=== PATIENT | male | born 1950 | race African-American/Black ===

== ENCOUNTER 2018-11-16 10:57 | Inpatient (IN) ==
--- NOTE | 2018-11-16 11:21 | DR.CP ---
HPI Time Seen Time Seen by Provider: 11/16/18 11:15 PCP Primary Care Physician: PATRICIA Complaint Chief Complaint Doctor Comments: A 67 y/o male with chest pain since 3-4 days ago. Location is in the center of his chest and it is not radiating. He describ es it as pressure like and mostly constant. He has no SOB or palpitations. He denies nausea or vomiting. Chief Complaint:: PT. C/O CHEST PAIN X 4 DAYS. PT. COUGHING UP PHLEGM. Reviewed Nurses Notes Review: Yes Source History Provided: Patient Mode of Arrival Mode of Arrival: Ambulatory Timing Onset of Chief Complaint: 11/12/18 Came on: Gradually Pain: Present Now Duration How lon Duration: Days Location Location of Chest Pain: Chest Chest Pain Radiation Location: None Context Cardiac Risk Factors: HTN and Diabetes PE Risk Factors: None History of: None Prehospital Care: None Quality Quality: Pressure like Severity Severity: Mild and Moderate Modifying Factors Worsens: Nothing Impoves: Nothing Associated Signs and Symptoms Associated Signs and Symptoms: None PMH PMH Past Medical History: Yes Past Medical History: Arthritis, Diabetes and Hypertension Past Surgical History: No Surgical History: No History Family History History of Family Medical Conditions: Yes Family Medical History: Diabetes Mellitus Social History Does patient currently use any type of tobacco product: Yes Have you used tobacco products in the last 12 months: Yes Type of Tobacco Use: Cigarettes Does any household member use tobacco: No Alcohol Use: None Do you use any recreational Drugs:: No Lives With: Family Lives Where: Home infectious screening In the last 2 months have you had wt loss of >10#?: NO Have you had fever, night sweats or hemotysis?: No Have you traveled outside the country in the last 6 months?: No Isolation: Standard ROS Review of Systems Constitutional: No Symptoms Reported Eyes: No Symptoms Reported ENTM: No Symptoms Reported Respiratoy: No Symptoms Reported Cardiovascular: Chest Pain Gastrointestinal/Abdominal: No Symptoms Reported Genitourinary: No Symptoms Reported Neurological: No Symptoms Reported Musculoskeletal: No Symptoms Reported Integumentary: No Symptoms Reported Hematologic/Lymphatic: No Symptoms Reported Endocrine: No Symptoms Reported Psychiatric: No Symptoms Reported PE Vitals Vitals: Temperature 98.5 F Pulse Rate [Apical] 100 Pulse Rate 104 Respiratory Rate 22 Blood Pressure [Left Arm] 103/60 Blood Pressure 98/56 O2 Sat by Pulse Oximetry 92 General Limitations: No Limitations General Appearance: Alert and In No Apparent Distress Head Head Exam: Normal Inspection, Atraumatic and Normocephalic Eyes Eye exam: Normal Appearance and EOMI ENT ENT Exam: Mucous Membranes Moist Chest Chest Inspection: Normal Inspection and Symmetric Chest Wall Rise Respiratory Respiratory Exam: Normal Lung Sounds Bilat Cardiovascular Cardiovascular Exam: Regular Rate, Normal Rhythm, +S1 and +S2 Abdominal Exam Abdominal Exam: Normal Inspection, Normal Bowel Sounds and Soft Extremities Extremities Exam: Normal Inspection and Full ROM Back Back Exam: Normal Inspection Neurologic Neurological Exam: Alert and Oriented X3 Psychiatric Psychiatric Exam: Normal Affect and Normal Mood Skin Skin Exam: Warm, Dry and Normal Color COURSE Reevaluation 1st: Improved Education/Counseling Education/Counseling: Patient, Education and Counseling Educated On: Treatment, Diagnosis, Prognosis and Needs for Follow Up ROR Labs Reviewed Laboratory Results Reviewed?: Yes Result Diagrams: 11/16/18 11:33 11/16/18 11:33 Laboratory: WBC 9.3 X10^3/uL (3.6-10.0) 11/16/18 11:33 RBC 4.15 X10^6/uL (4.7-6.0) L 11/16/18 11:33 Hgb 12.6 g/dL (13.5-18.0) L 11/16/18 11:33 Hct 37.9 % (42.0-54.0) L 11/16/18 11:33 MCV 91.2 fL (80.0-100.0) 11/16/18 11:33 MCH 30.3 pg (27.0-34.0) 11/16/18 11:33 MCHC 33.2 g/dL (33.0-35.0) 11/16/18 11:33 RDW 14.0 % (11.6-16.5) 11/16/18 11:33 Plt Count 279 X10^3/uL (150.0-450.0) 11/16/18 11:33 MPV 7.6 fL (7.4-11.0) 11/16/18 11:33 Neut % (Auto) 70.1 % (42.0-75.0) 11/16/18 11:33 Lymph % (Auto) 19.2 % (21.0-51.0) L 11/16/18 11:33 [place] % (Auto) 9.7 % (0.0-13.0) 11/16/18 11:33 Eos % (Auto) 0.0 % (0.9-2.9) L 11/16/18 11:33 Baso % (Auto) 1.0 % (0.2-1.0) 11/16/18 11:33 Neut # (Auto) 6.5 x10^3/uL (2.2-4.8) H 11/16/18 11:33 Lymph # (Auto) 1.8 X10^3/uL (1.3-2.9) 11/16/18 11:33 [place] # (Auto) 0.9 x10^3/uL (0.3-0.8) H 11/16/18 11:33 Eos # (Auto) 0.0 x10^3/uL (0.0-0.2) 11/16/18 11:33 Baso # (Auto) 0.1 X10^3/uL (0.0-0.1) 11/16/18 11:33 Absolute Nucleated RBC 0.1 /100WBC 11/16/18 11:33 INR Target Range - 11/16/18 11:33 INR 1.09 (0.8-1.3) 11/16/18 11:33 APTT 39.3 SECONDS (22.9-36.5) H 11/16/18 11:33 PTT Comment - 11/16/18 11:33 Sodium 134 mmol/L (136-145) L 11/16/18 11:33 Corrected Sodium TNP 11/16/18 11:33 Potassium 4.0 mmol/L (3.5-5.1) 11/16/18 11:33 Chloride 99 mmol/L (98-107) 11/16/18 11:33 Carbon Dioxide 24.7 mmol/L (21-32) 11/16/18 11:33 BUN 20 mg/dL (7-18) H 11/16/18 11:33 Creatinine 1.44 mg/dL (0.70-1.30) H 11/16/18 11:33 Est GFR (MDRD) Af Amer > 60 (>60) 11/16/18 11:33 Est GFR (MDRD) Non-Af 52 (>60) L 11/16/18 11:33 Glucose 66 mg/dL (65-99) 11/16/18 11:33 Calcium 8.2 mg/dL (8.5-10.1) L 11/16/18 11:33 Corrected Calcium 9.2 mg/dL (8.5-10.1) 11/16/18 11:33 Magnesium 1.8 mg/dL (1.7-2.9) 11/16/18 11:33 Total Bilirubin 0.20 mg/dL (0.2-1.0) 11/16/18 11:33 AST 34 Units/L (15-37) 11/16/18 11:33 ALT 20 Units/L (12-78) 11/16/18 11:33 Alkaline Phosphatase 73 Units/L (46-116) 11/16/18 11:33 Creatine Kinase 560 Units/L (39-308) H 11/16/18 11:33 CK-MB (CK-2) 1.0 ng/mL (0-4.0) 11/16/18 11:33 CK/CKMB % Calc 0.2 % (<4) 11/16/18 11:33 Troponin I < 0.02 ng/mL (0-1.5) 11/16/18 11:33 B-Natriuretic Peptide 35.0 pg/mL (0-79) 11/16/18 11:33 Total Protein 7.2 g/dL (6.4-8.2) 11/16/18 11:33 Albumin 2.7 g/dL (3.4-5.0) L 11/16/18 11:33 Globulin 4.5 g/dL (2.5-4.5) 11/16/18 11:33 Albumin/Globulin Ratio 0.6 Ratio (1.1-2.1) L 11/16/18 11:33 XRAY XRAY Interpreted by: Radiologist XRAY Findings: CXR: findings suggestive of COPD. EKG Rate: 112 [place]: Normal Rhythm: ST and PVCs Block: None Hypertrophy: LVH and RVH Diagnosis Discharge Problem: Benign essential HTN Chest pain Qualifiers: Chest pain type: precordial pain Qualified Code(s): R07.2 - Precordial pain Diabetes mellitus Qualifiers: Diabetes mellitus type: type 2 Diabetes mellitus intermediate manager insulin use: without intermediate manager use Diabetes mellitus complication status: without complication Qualif ied Code(s): E11.9 - Type 2 diabetes mellitus without complications
[2018-11-16 11:44] LABS: BASOPHILS # (AUTO) 0.1 X10^3/uL (0.0-0.1); HEMATOCRIT 37.9 % (42.0-54.0); HEMOGLOBIN 12.6 g/dL (13.5-18.0); LYMPHOCYTES # (AUTO) 1.8 X10^3/uL (1.3-2.9); LYMPHOCYTES % (AUTO) 19.2 % (21.0-51.0); MEAN CORPUSCULAR HEMOGLOBIN 30.3 pg (27.0-34.0); MEAN CORPUSCULAR HGB CONC 33.2 g/dL (33.0-35.0); MEAN CORPUSCULAR VOLUME 91.2 fL (80.0-100.0); MEAN PLATELET VOLUME 7.6 fL (7.4-11.0); MONOCYTES # (AUTO) 0.9 x10^3/uL (0.3-0.8); MONOCYTES % (AUTO) 9.7 % (0.0-13.0); NEUTROPHILS # (AUTO) 6.5 x10^3/uL (2.2-4.8); NEUTROPHILS % (AUTO) 70.1 % (42.0-75.0); PLATELET COUNT 279 X10^3/uL (150.0-450.0); RED BLOOD COUNT 4.15 X10^6/uL (4.7-6.0); WHITE BLOOD COUNT 9.3 X10^3/uL (3.6-10.0)
--- NOTE | 2018-11-16 12:08 | RAD ---
HISTORY: 67-year-old male with chest pain. Study: Frontal view of the chest. Comparison: Acute abdominal series radiograph 08/05/2015. Findings: The trachea is midline. The cardiac silhouette is stable with prominent interstitium and perihilar lung markings. The lungs are clear without focal consolidation, effusion or pneumothorax. Soft tissues are unremarkable. Osseous structures are unremarkable. IMPRESSION: 1. No acute cardiopulmonary disease with findings suggesting COPD. Reported By:
[2018-11-16 12:13] LABS: BLOOD UREA NITROGEN 20 mg/dL (7-18); CALCIUM 8.2 mg/dL (8.5-10.1); CARBON DIOXIDE 24.7 mmol/L (21-32); CHLORIDE 99 mmol/L (98-107); CREATININE 1.44 mg/dL (0.70-1.30); SODIUM 134 mmol/L (136-145); TROPONIN I < 0.02 ng/mL (0-1.5); eGFR NON BLACK RACES 52 (>60)
[2018-11-16 12:14] LABS: ALANINE AMINOTRANSFERASE 20 Units/L (12-78); ALBUMIN 2.7 g/dL (3.4-5.0); ALKALINE PHOSPHATASE 73 Units/L (46-116); ASPARTATE AMINO TRANSFERASE 34 Units/L (15-37); CKMB % 0.2 % (<4); COR CA(FOR HYPOALB) 9.2 mg/dL (8.5-10.1); CREATINE KINASE 560 Units/L (39-308); MAGNESIUM 1.8 mg/dL (1.7-2.9); TOTAL PROTEIN 7.2 g/dL (6.4-8.2)
[2018-11-16] MEDS ORDERED: DUONEB 0.5 MG/3 MG ONE (12:23)
[2018-11-16] MEDS ORDERED: DUONEB 0.5 MG/3 MG NEB ONE (12:42)
[2018-11-16] MEDS ORDERED: NITROSTAT SL PRN (15:55)
[2018-11-16 19:33] LABS: CKMB % 0.2 % (<4); CREATINE KINASE 621 Units/L (39-308); CREATINE KINASE MB 1.3 ng/mL (0-4.0); TROPONIN I < 0.02 ng/mL (0-1.5)
[2018-11-16] MEDS ORDERED: GLUCOPHAGE ONE (20:07)
[2018-11-16] MEDS: ZESTRIL TAB 10 MG PO SCH (21:01)
[2018-11-16] MEDS: FLEXERIL TAB 10 MG PO SCH (21:01)
[2018-11-16] MEDS: GLUCOTROL PO SCH (21:01)
[2018-11-16] MEDS: GLUCOPHAGE PO SCH (21:01)
[2018-11-16] MEDS: DUONEB 0.5 MG/3 MG NEB SCH (21:19)
[2018-11-17 01:31] LABS: CKMB % 0.3 % (<4); CREATINE KINASE 700 Units/L (39-308); CREATINE KINASE MB 1.8 ng/mL (0-4.0); TROPONIN I < 0.02 ng/mL (0-1.5)
[2018-11-17 05:22] LABS: BASOPHILS % (AUTO) 0.3 % (0.2-1.0); EOSINOPHILS % (AUTO) 0.1 % (0.9-2.9); HEMATOCRIT 35.5 % (42.0-54.0); HEMOGLOBIN 11.8 g/dL (13.5-18.0); LYMPHOCYTES % (AUTO) 23.2 % (21.0-51.0); MEAN CORPUSCULAR HEMOGLOBIN 30.3 pg (27.0-34.0); MEAN CORPUSCULAR HGB CONC 33.2 g/dL (33.0-35.0); MEAN CORPUSCULAR VOLUME 91.1 fL (80.0-100.0); MEAN PLATELET VOLUME 7.7 fL (7.4-11.0); MONOCYTES % (AUTO) 11.5 % (0.0-13.0); NEUTROPHILS # (AUTO) 5.7 x10^3/uL (2.2-4.8); NEUTROPHILS % (AUTO) 64.9 % (42.0-75.0); PLATELET COUNT 287 X10^3/uL (150.0-450.0); RED BLOOD COUNT 3.89 X10^6/uL (4.7-6.0); RED CELL DISTRIBUTION WIDTH 13.9 % (11.6-16.5); WHITE BLOOD COUNT 8.8 X10^3/uL (3.6-10.0)
[2018-11-17 05:32] LABS: ALANINE AMINOTRANSFERASE 22 Units/L (12-78); ALBUMIN 2.4 g/dL (3.4-5.0); ALKALINE PHOSPHATASE 70 Units/L (46-116); ASPARTATE AMINO TRANSFERASE 37 Units/L (15-37); BLOOD UREA NITROGEN 18 mg/dL (7-18); CALCIUM 8.3 mg/dL (8.5-10.1); CARBON DIOXIDE 26.7 mmol/L (21-32); CHLORIDE 102 mmol/L (98-107); COR CA(FOR HYPOALB) 9.6 mg/dL (8.5-10.1); CREATININE 1.27 mg/dL (0.70-1.30); SODIUM 137 mmol/L (136-145); TOTAL PROTEIN 6.7 g/dL (6.4-8.2); eGFR NON BLACK RACES 60 (>60)
[2018-11-17] MEDS: FLEXERIL TAB 10 MG PO SCH ×3 (05:42→22:12)
[2018-11-17] MEDS: DUONEB 0.5 MG/3 MG NEB SCH ×4 (08:40→20:35)
[2018-11-17] MEDS ORDERED: PHARMACY CONSULT - DOSE _____ XX SCH (09:00)
[2018-11-17 09:01] VITALS: BMI 38.7
[2018-11-17] MEDS: ZESTRIL TAB 10 MG PO SCH ×2 (09:51→20:55)
[2018-11-17] MEDS: GLUCOTROL PO SCH (09:51)
[2018-11-17] MEDS: GLUCOPHAGE PO SCH ×2 (09:53→20:54)
--- NOTE | 2018-11-17 09:53 | RAD ---
History: Chest pain and shortness breath Study: PA and lateral chest Comparison: Yesterday Findings: The lungs are clear and the heart and mediastinum are unremarkable. There is no edema or effusion or congestion. There is hyperinflation as before. There are mild degenerative changes in the spine. Impression: Probable COPD, no evidence for acute disease Reported By:
[2018-11-17] MEDS ORDERED: NS 250 ML IV 250 ML ONE (10:17)
[2018-11-17] MEDS: LEVAQUIN PREMIX IV 500 MG 500 MG/100 ML BAG IV SCH (10:28)
[2018-11-17] MEDS: SOLU-Medrol 40 MG VIAL IVP SCH ×2 (10:29→20:50)
--- NOTE | 2018-11-17 12:25 | DR.H&P ---
H&P - History & Physical for Day of: H&P Date: 11/16/18 - Chief Complaint Chief Complaint: SOB, chest discomfort - History of Present Illness History of Present Illness: The patient is a 67yo BM who presented to ED with complaint of SOB. Patient gives a history of progressive over last 3 days with pain when taking deep breaths. Denies pain with movement or chest pressure. States that he was having increasing trouble walking across room. Denies hx of asthma or COPD. States he smoked tobacco 15+yrs ago. Denies fever. Has had productive cough. Denies any nasal congestion. Denies any other complaints. - Past Medical History Past Medical History: Hypertension, Diabetes, Arthritis - Past Surgical History Surgical History: TURP - Family History Family Medical History: Diabetes Mellitus - Social History Does patient currently use any type of tobacco product: No Have you used tobacco products in the last 12 months: No Type of Tobacco Use: None How many years tobacco product used: 15 Does any household member use tobacco: No Alcohol Use: None Drug Use: None - Medications Home Medications: No Known Drug Allergies Allergy (Verified 11/16/18 11:06) CONTINUE taking the following medications carvedilol [Coreg] 3.125 mg PO DAILY 11/16/18 [History] cyclobenzaprine 10 mg PO TID 11/16/18 [History] lisinopril [Zestril] 10 mg PO BID 11/16/18 [History] - Review of Systems Constitutional: Malaise Eyes: No Symptoms Reported ENT: No Symptoms Reported Respiratory: Cough, Shortness of Breath, SOB with Excertion, Pleuritic Pain, Sputum, Wheezing Cardiovascular: No Symptoms Reported Gastrointestinal: No Symptoms Reported Genitourinary: No Symptoms Reported Musculoskeletal: No Symptoms Reported Skin: No Symptoms Reported Neurological: No Symptoms Reported - Physical Exam Vital Signs: Temperature 98.2 F Pulse Rate [Apical] 95 Pulse Rate 106 Respiratory Rate 20 Blood Pressure [Right Arm] 98/57 Blood Pressure [Left Arm] 117/64 Blood Pressure 98/56 O2 Sat by Pulse Oximetry 95 Oriented: Normal Eyes: Normal Ear: Normal Nose: Normal Throat: Normal Respiratory: RUL Exp. Wheeze, MIKHAIL Exp. Wheeze Cardiovascular: Normal : Normal Auscultation: Bowel Sounds: Normal Palpation: Normal Tenderness: Normal Skin: Normal Musculoskeletal: Normal Psychiatric: Normal Mood Description: Calm Affect: Normal Speech Pattern: Clear - Assessment/Plan (1) COPD exacerbation Status: Acute Plan: Albuterol Nebs, IV antibiotics, Steriods (2) Hypoxia Status: Acute (3) Benign essential HTN Status: Acute Plan: Monitor BP, Home meds. (4) Diabetes mellitus Qualifiers: Diabetes mellitus type: type 2 Diabetes mellitus supervisor long goods insulin use: without supervisor long goods use Diabetes mellitus complication status: without complication Qualified Code(s): E11.9 - Type 2 diabetes mellitus without complications Status: Acute Plan: Monitor BS - Allergies Allergies/Adverse Reactions: Allergies Allergy/AdvReac Type Severity Reaction Status Date / Time No Known Drug Allergies Allergy Verified 11/16/18 11:06
--- NOTE | 2018-11-17 12:30 | PCM.PROG ---
Progress Note - Progress Note for Day of Date of Exam: 11/17/18 - Subjective Subjective: The patient is a 67yo BM who was admitted due to COPD exacerbation. This is a new diagnosis for patient. Patient is sitting up in chair. Continues to have nonproductive cough and SOB. Wearing O2 @2L/m. Elevated D Dimer. Denies leg pain. Does admit to SOB with walking across room with sudden onset. Denies any other complaints. - Past Medical Family Social History Past Med/Fam/Surg Hx: No changes since H&P Allergies: Allergies No Known Drug Allergies Allergy (Verified 11/16/18 11:06) - Review of Systems ROS: No change since H&P - Vital Signs and I&O's Vital Signs: Temperature 98.2 F Pulse Rate [Apical] 95 Pulse Rate 106 Respiratory Rate 20 Blood Pressure [Right Arm] 98/57 Blood Pressure [Left Arm] 117/64 Blood Pressure 98/56 O2 Sat by Pulse Oximetry 95 Intake and Output: Intake & Output 11/14/18 11/15/18 11/16/18 11/17/18 23:59 23:59 23:59 23:59 Intake Total 360 / 360 360 / 360 Balance 360 / 360 360 / 360 - Physical Exam Oriented: Normal Eyes: Normal Ear: Normal Nose: Normal Throat: Normal Respiratory: Wheezes, Rhonchi Cardiovascular: Normal : Normal Auscultation: Bowel Sounds: Normal Palpation: Normal Tenderness: Normal Skin: Normal Musculoskeletal: Normal Psychiatric: Normal Mood Description: Calm Affect: Normal Speech Pattern: Clear - Laboratory and Diagnostics Result Diagrams: 11/17/18 04:06 11/17/18 05:57 Labs: 11/17/18 11:10 Sputum - Expectorated Sputum - Final Laboratory WBC 8.8 X10^3/uL (3.6-10.0) 11/17/18 04:06 RBC 3.89 X10^6/uL (4.7-6.0) L 11/17/18 04:06 Hgb 11.8 g/dL (13.5-18.0) L 11/17/18 04:06 Hct 35.5 % (42.0-54.0) L 11/17/18 04:06 MCV 91.1 fL (80.0-100.0) 11/17/18 04:06 MCH 30.3 pg (27.0-34.0) 11/17/18 04:06 MCHC 33.2 g/dL (33.0-35.0) 11/17/18 04:06 RDW 13.9 % (11.6-16.5) 11/17/18 04:06 Plt Count 287 X10^3/uL (150.0-450.0) 11/17/18 04:06 MPV 7.7 fL (7.4-11.0) 11/17/18 04:06 Neut % (Auto) 64.9 % (42.0-75.0) 11/17/18 04:06 Lymph % (Auto) 23.2 % (21.0-51.0) 11/17/18 04:06 [place] % (Auto) 11.5 % (0.0-13.0) 11/17/18 04:06 Eos % (Auto) 0.1 % (0.9-2.9) L 11/17/18 04:06 Baso % (Auto) 0.3 % (0.2-1.0) 11/17/18 04:06 Neut # (Auto) 5.7 x10^3/uL (2.2-4.8) H 11/17/18 04:06 Lymph # (Auto) 2.0 X10^3/uL (1.3-2.9) 11/17/18 04:06 [place] # (Auto) 1.0 x10^3/uL (0.3-0.8) H 11/17/18 04:06 Eos # (Auto) 0.0 x10^3/uL (0.0-0.2) 11/17/18 04:06 Baso # (Auto) 0.0 X10^3/uL (0.0-0.1) 11/17/18 04:06 Absolute Nucleated RBC 0.1 /100WBC 11/17/18 04:06 INR Target Range - 11/16/18 11:33 INR 1.09 (0.8-1.3) 11/16/18 11:33 APTT 39.3 SECONDS (22.9-36.5) H 11/16/18 11:33 PTT Comment - 11/16/18 11:33 D-Dimer 603 ng/mL (0-400) H* 11/16/18 11:33 Sodium 137 mmol/L (136-145) 11/17/18 04:06 Corrected Sodium TNP 11/17/18 04:06 Potassium 3.9 mmol/L (3.5-5.1) 11/17/18 04:06 Chloride 102 mmol/L (98-107) 11/17/18 04:06 Carbon Dioxide 26.7 mmol/L (21-32) 11/17/18 04:06 BUN 18 mg/dL (7-18) 11/17/18 04:06 Creatinine 1.27 mg/dL (0.70-1.30) 11/17/18 04:06 Est GFR (MDRD) Af Amer > 60 (>60) 11/17/18 04:06 Est GFR (MDRD) Non-Af 60 (>60) 11/17/18 04:06 Glucose 52 mg/dL (65-99) L 11/17/18 05:57 POC Glucose (mg/dL) 168 mg/dL (65-99) H 11/17/18 11:42 Calcium 8.3 mg/dL (8.5-10.1) L 11/17/18 04:06 Corrected Calcium 9.6 mg/dL (8.5-10.1) 11/17/18 04:06 Magnesium 1.8 mg/dL (1.7-2.9) 11/16/18 11:33 Total Bilirubin 0.10 mg/dL (0.2-1.0) L 11/17/18 04:06 AST 37 Units/L (15-37) 11/17/18 04:06 ALT 22 Units/L (12-78) 11/17/18 04:06 Alkaline Phosphatase 70 Units/L (46-116) 11/17/18 04:06 Creatine Kinase 700 Units/L (39-308) H 11/17/18 00:59 CK-MB (CK-2) 1.8 ng/mL (0-4.0) 11/17/18 00:59 CK/CKMB % Calc 0.3 % (<4) 11/17/18 00:59 Troponin I < 0.02 ng/mL (0-1.5) 11/17/18 00:59 B-Natriuretic Peptide 35.0 pg/mL (0-79) 11/16/18 11:33 Total Protein 6.7 g/dL (6.4-8.2) 11/17/18 04:06 Albumin 2.4 g/dL (3.4-5.0) L 11/17/18 04:06 Globulin 4.3 g/dL (2.5-4.5) 11/17/18 04:06 Albumin/Globulin Ratio 0.6 Ratio (1.1-2.1) L 11/17/18 04:06 - Plan (1) COPD exacerbation Status: Acute Plan: Albuterol Nebs, IV antibiotics, Steriods (2) Hypoxia Status: Acute Plan: O2 2l/m NC (3) Benign essential HTN Status: Acute Plan: Monitor BP, Home meds. (4) Diabetes mellitus Status: Acute Qualifiers: Diabetes mellitus type: type 2 Diabetes mellitus mcfp insulin use: without mcfp use Diabetes mellitus complication status: without complication Qualified Code(s): E11.9 - Type 2 diabetes mellitus without complications Plan: Monitor BS
[2018-11-17] MEDS ORDERED: NS 100 ML IV 100 ML ONE (15:07)
--- NOTE | 2018-11-17 15:59 | CT ---
HISTORY: Chest pain, shortness of breath, hypoxia, elevated D-dimer Study: CTA chest Comparison: None Technique: Multiple axial images of the chest were obtained after the administration of IV contrast. 3D reconstructions were performed utilizing radial maximum intensity projection imaging. Dose reduction techniques including Automated Exposure Control (AEC) and adjustment of mA and kV were utilized. Findings: Contrast opacification of the pulmonary arteries is adequate to the level of the segmental branches. No evidence of acute pulmonary emboli. Normal appearance of the heart and pericardium. The aorta appears normal in course and caliber. There are mild bilateral ground-glass infiltrates that may reflect infectious or inflammatory pneumonitis. Effusion or pneumothorax identified. Airways appear patent. There are mildly enlarged mediastinal lymph nodes present for example the largest right paratracheal node axial image 34 measuring 1.7 x 1.3 cm and largest subcarinal node axial image 45 measuring up 2.5 cm that may be reactive. There is a small hiatal hernia. The soft tissues and osseous structures appear intact. The visualized portions of the upper abdomen are grossly unremarkable. IMPRESSION: 1. Bilateral ground-glass infiltrates that suggesting infectious or inflammatory pneumonitis, correlate clinically. 2. Mildly enlarged mediastinal lymph nodes as described that may be reactive in nature. 3. No acute pulmonary embolism. Reported By:
[2018-11-17] MEDS: HumuLIN R SUBCUT PRN ×2 (17:19→21:15)
[2018-11-17] MEDS ORDERED: GLUCOPHAGE ONE (20:32)
[2018-11-17] MEDS: SNACK - Diabetic Appropriate PO SCH (20:55)
[2018-11-18] MEDS ORDERED: NORCO 5/325 MG TAB PO PRN (00:38)
[2018-11-18] MEDS: HumuLIN R SUBCUT PRN ×6 (00:58→21:48)
[2018-11-18] MEDS ORDERED: NORCO 5/325 MG TAB ONE (01:55)
[2018-11-18 05:22] LABS: BASOPHILS % (AUTO) 0.3 % (0.2-1.0); HEMATOCRIT 36.3 % (42.0-54.0); LYMPHOCYTES # (AUTO) 1.4 X10^3/uL (1.3-2.9); LYMPHOCYTES % (AUTO) 16.7 % (21.0-51.0); MEAN CORPUSCULAR HEMOGLOBIN 30.3 pg (27.0-34.0); MEAN CORPUSCULAR HGB CONC 33.1 g/dL (33.0-35.0); MEAN CORPUSCULAR VOLUME 91.3 fL (80.0-100.0); MEAN PLATELET VOLUME 7.4 fL (7.4-11.0); MONOCYTES # (AUTO) 0.5 x10^3/uL (0.3-0.8); MONOCYTES % (AUTO) 6.3 % (0.0-13.0); NEUTROPHILS # (AUTO) 6.3 x10^3/uL (2.2-4.8); NEUTROPHILS % (AUTO) 76.7 % (42.0-75.0); PLATELET COUNT 331 X10^3/uL (150.0-450.0); RED BLOOD COUNT 3.98 X10^6/uL (4.7-6.0); RED CELL DISTRIBUTION WIDTH 14.5 % (11.6-16.5); WHITE BLOOD COUNT 8.2 X10^3/uL (3.6-10.0)
[2018-11-18 05:39] LABS: ALANINE AMINOTRANSFERASE 28 Units/L (12-78); ALBUMIN 2.3 g/dL (3.4-5.0); ALKALINE PHOSPHATASE 79 Units/L (46-116); ASPARTATE AMINO TRANSFERASE 32 Units/L (15-37); BLOOD UREA NITROGEN 25 mg/dL (7-18); CALCIUM 8.5 mg/dL (8.5-10.1); CARBON DIOXIDE 26.4 mmol/L (21-32); CHLORIDE 104 mmol/L (98-107); COR CA(FOR HYPOALB) 9.9 mg/dL (8.5-10.1); COR NA(FOR HYPERGLY) 143 mmol/L (136-145); CREATININE 1.36 mg/dL (0.70-1.30); SODIUM 139 mmol/L (136-145); eGFR NON BLACK RACES 55 (>60)
[2018-11-18] MEDS: FLEXERIL TAB 10 MG PO SCH ×3 (05:58→21:46)
[2018-11-18] MEDS ORDERED: GLUCOPHAGE ONE ×2 (08:40→21:24)
[2018-11-18] MEDS: DUONEB 0.5 MG/3 MG NEB SCH ×4 (08:44→21:29)
[2018-11-18] MEDS: GLUCOPHAGE PO SCH ×2 (08:51→21:46)
[2018-11-18] MEDS: ZESTRIL TAB 10 MG PO SCH ×2 (08:51→21:47)
[2018-11-18] MEDS: LEVAQUIN PREMIX IV 500 MG 500 MG/100 ML BAG IV SCH (08:52)
[2018-11-18] MEDS: SOLU-Medrol 40 MG VIAL IVP SCH ×2 (08:52→21:46)
[2018-11-18] MEDS: LOVENOX INJ 40 MG SYR SC SCH (08:52)
[2018-11-18 19:51] LABS: ABG BASE EXCESS -0.6 mmol/L (-2.0-2.0); ABG HCO3 23.1 mmol/L (22-26)
[2018-11-18 19:52] LABS: ABG ALLEN TEST POS; FRACTIONATED INSPIRED OXYGEN 21
[2018-11-18] MEDS: SNACK - Diabetic Appropriate PO SCH (21:48)
[2018-11-19] MEDS: FLEXERIL TAB 10 MG PO SCH (05:25)
[2018-11-19] MEDS: HumuLIN R SUBCUT PRN (05:29)
--- NOTE | 2018-11-19 06:03 | RAD ---
Examination: AP chest, two views History: Chest pain SOB Comparison 11/17/2018 Findings: Continued normal heart size with clear lungs and pleural spaces. Impression: No interval change or acute chest abnormality demonstrated. Reported By:
[2018-11-19 06:36] LABS: BASOPHILS # (AUTO) 0.1 X10^3/uL (0.0-0.1); BASOPHILS % (AUTO) 0.5 % (0.2-1.0); HEMATOCRIT 35.7 % (42.0-54.0); HEMOGLOBIN 11.8 g/dL (13.5-18.0); LYMPHOCYTES # (AUTO) 1.5 X10^3/uL (1.3-2.9); LYMPHOCYTES % (AUTO) 12.8 % (21.0-51.0); MEAN CORPUSCULAR HEMOGLOBIN 29.8 pg (27.0-34.0); MEAN CORPUSCULAR HGB CONC 33.1 g/dL (33.0-35.0); MEAN CORPUSCULAR VOLUME 90.1 fL (80.0-100.0); MEAN PLATELET VOLUME 7.1 fL (7.4-11.0); MONOCYTES # (AUTO) 0.8 x10^3/uL (0.3-0.8); MONOCYTES % (AUTO) 7.3 % (0.0-13.0); NEUTROPHILS # (AUTO) 9.1 x10^3/uL (2.2-4.8); NEUTROPHILS % (AUTO) 79.4 % (42.0-75.0); PLATELET COUNT 421 X10^3/uL (150.0-450.0); RED BLOOD COUNT 3.96 X10^6/uL (4.7-6.0); RED CELL DISTRIBUTION WIDTH 14.2 % (11.6-16.5); WHITE BLOOD COUNT 11.4 X10^3/uL (3.6-10.0)
[2018-11-19 06:52] LABS: ALANINE AMINOTRANSFERASE 29 Units/L (12-78); ALBUMIN 2.5 g/dL (3.4-5.0); ALKALINE PHOSPHATASE 79 Units/L (46-116); ASPARTATE AMINO TRANSFERASE 20 Units/L (15-37); BLOOD UREA NITROGEN 28 mg/dL (7-18); CALCIUM 8.6 mg/dL (8.5-10.1); CARBON DIOXIDE 25.2 mmol/L (21-32); CHLORIDE 103 mmol/L (98-107); COR CA(FOR HYPOALB) 9.8 mg/dL (8.5-10.1); COR NA(FOR HYPERGLY) 142 mmol/L (136-145); CREATININE 1.41 mg/dL (0.70-1.30); SODIUM 138 mmol/L (136-145); TOTAL PROTEIN 7.1 g/dL (6.4-8.2); eGFR NON BLACK RACES 53 (>60)
[2018-11-19] MEDS: DUONEB 0.5 MG/3 MG NEB SCH (09:01)
[2018-11-19] MEDS ORDERED: GLUCOPHAGE ONE (09:42)
[2018-11-19] MEDS: LEVAQUIN PREMIX IV 500 MG 500 MG/100 ML BAG IV SCH (09:45)
[2018-11-19] MEDS: ZESTRIL TAB 10 MG PO SCH (09:45)
[2018-11-19] MEDS: GLUCOPHAGE PO SCH (09:45)
[2018-11-19] MEDS: SOLU-Medrol 40 MG VIAL IVP SCH (09:46)
[2018-11-19] MEDS: LOVENOX INJ 40 MG SYR SC SCH (09:46)
[2018-11-19 10:37] VITALS: BP 140/88
== END 2018-11-19 10:55 | disposition home or self-care (01) | DRG 192 ==
LOC: MED/SURG 11:01 → ER 11:01 → OBSVTOIN 15:45 → MED/SURG 16:01
PROVIDERS: ADMIT Internal Medicine; ATTEND Internal Medicine
DX: E11.9 Type 2 diabetes mellitus without complications; R09.02 Hypoxemia; I95.89 Other hypotension; R07.2 Precordial pain; R06.02 Shortness of breath; R79.1 Abnormal coagulation profile; J44.1 Chronic obstructive pulmonary disease with (acute) exacerbation
CPT/HCPCS: 36415; 36600; 71010; 71020; 71045; 71046; 71275; 80053; 82550; 82553; 82803; 82947; 83735; 83880; 84484; 85025; 85378; 85610; 85730; 87070; 87205; 93005; 94640; 94760; 96365; 96374; 97116; 97162; 97166; 99284; A4222; J1650; J1815; J1956; J2920; J7050; J7620

== ENCOUNTER 2021-02-22 13:52 | Inpatient (IN) ==
[2021-02-22 14:11] VITALS: BMI 34.0
[2021-02-22 14:35] LABS: ABG BASE EXCESS -5.6 mmol/L (-2.0-2.0); ABG HCO3 20.1 mmol/L (22-26)
[2021-02-22 14:36] LABS: ABG ALLEN TEST POS
[2021-02-22 14:50] LABS: BASOPHILS # (AUTO) 0.1 X10^3/uL (0.0-0.1); EOSINOPHILS % (AUTO) 0.1 % (0.9-2.9); HEMATOCRIT 34.2 % (42.0-54.0); HEMOGLOBIN 11.5 g/dL (13.5-18.0); LYMPHOCYTES # (AUTO) 0.6 X10^3/uL (1.3-2.9); LYMPHOCYTES % (AUTO) 9.9 % (21.0-51.0); MEAN CORPUSCULAR HEMOGLOBIN 30.4 pg (27.0-34.0); MEAN CORPUSCULAR HGB CONC 33.5 g/dL (33.0-35.0); MEAN CORPUSCULAR VOLUME 90.8 fL (80.0-100.0); MEAN PLATELET VOLUME 7.5 fL (7.4-11.0); MONOCYTES # (AUTO) 0.5 x10^3/uL (0.3-0.8); MONOCYTES % (AUTO) 8.2 % (0.0-13.0); NEUTROPHILS # (AUTO) 5.2 x10^3/uL (2.2-4.8); NEUTROPHILS % (AUTO) 80.8 % (42.0-75.0); PLATELET COUNT 421 X10^3/uL (150.0-450.0); RED BLOOD COUNT 3.77 X10^6/uL (4.7-6.0); RED CELL DISTRIBUTION WIDTH 15.6 % (11.6-16.5); WHITE BLOOD COUNT 6.5 X10^3/uL (3.6-10.0)
[2021-02-22 15:10] LABS: ALANINE AMINOTRANSFERASE 24 Units/L (12-78); ALBUMIN 1.9 g/dL (3.4-5.0); ALKALINE PHOSPHATASE 70 Units/L (46-116); ASPARTATE AMINO TRANSFERASE 60 Units/L (15-37); BLOOD UREA NITROGEN 47 mg/dL (7-18); CALCIUM 7.6 mg/dL (8.5-10.1); CARBON DIOXIDE 22.9 mmol/L (21-32); CHLORIDE 103 mmol/L (98-107); CKMB % 0.2 % (<4); COR CA(FOR HYPOALB) 9.3 mg/dL (8.5-10.1); COR NA(FOR HYPERGLY) 139 mmol/L (136-145); CREATINE KINASE 711 Units/L (39-308); CREATINE KINASE MB 1.2 ng/mL (0-4.0); CREATININE 1.66 mg/dL (0.70-1.30); SODIUM 138 mmol/L (136-145); TOTAL PROTEIN 6.4 g/dL (6.4-8.2); TROPONIN I < 0.02 ng/mL (0-1.5); eGFR NON BLACK RACES 44 (>60)
--- NOTE | 2021-02-22 15:37 | DR.AMS ---
HPI Time Seen Time Seen by Provider: 02/22/21 14:22 PCP Primary Care Physician: Dr Go HPI Comment HPI Comment: Pt brought to ER by EMS. according to them pts family members pos for covid.pt was sitting outside he fell and hurt his side .Its difficult to know if he lost consciousness or not .On arrival pts oxygen sat in the higher 60s on room air .Improved to over 80s and then 90s with non breather Complaint Cheif Complaint Doctors Comments: fall Chief Complaint:: EMS reports pt has altered loc per relatives. Pt answers name, , and current location. O2 sat 83% on O2 at 4 lpm. Family states this started a few days ago. Pt c/o left side pain s/p fall 3 days ago. COVID-19 Coronavirus risk:travel/contact w/high risk person: Yes Has patient experienced Coronavirus symptoms: No Coronavirus symptoms experienced: Shortness of Breath Reviewed Nurses Notes Reviewed: Yes Source History Provided: EMS Mode of Arrival Mode of Arrival: EMS Timing Onset of Chief Complaint: 02/19/21 Came On: Gradually Symptoms: Unchanged Duration Duration: Since Onset Duration: Hours Quality Quality: Decreased Alertness and Confusion Severity Severity: Moderate Context Recent: Cough PMH PMH Past Medical History: Yes Past Medical History: Arthritis, Diabetes, Dyslipidemia and Hypertension Past Surgical History: Yes Surgical History: TURP Family History History of Family Medical Conditions: Yes Family Medical History: Diabetes Mellitus Social History Does patient currently use any type of tobacco product: Yes Have you used tobacco products in the last 12 months: Yes Type of Tobacco Use: Cigarettes Does any household member use tobacco: No Alcohol Use: None Do you use any recreational Drugs:: No Lives With: Alone Lives Where: Home Travel Risk Coronavirus risk:travel/contact w/high risk person: Yes Has patient experienced Coronavirus symptoms: No Coronavirus symptoms experienced: Shortness of Breath Infectious screening In the last 2 months have you had wt loss of >10#?: NO Have you had fever, night sweats or hemotysis?: No Have you traveled outside the country in the last 6 months?: No Isolation: Droplet ROS Review of Systems Constitutional: See HPI and Weakness Eyes: See HPI ENTM: No Symptoms Reported Respiratoy: Productive Cough and Short of Breath Gastrointestinal/Abdominal: No Symptoms Reported Genitourinary: No Symptoms Reported Neurological: See HPI Musculoskeletal: Other (rib pain) Hematologic/Lymphatic: No Symptoms Reported PE Vitals Vital Signs: Temp Pulse Resp BP BP BP Pulse Ox 02/22/21 18:15 90 24 92 L 02/22/21 18:00 90 22 107/77 88 L 02/22/21 17:45 88 25 H 90 L 02/22/21 17:30 90 20 100/64 90 L 02/22/21 17:24 91 H 21 91 L 02/22/21 17:00 19 107/67 90 L 02/22/21 16:00 86 22 85/58 97 02/22/21 15:00 94 H 22 95/60 88 L 02/22/21 14:22 99 H 27 H 116/64 94 L 02/22/21 13:52 98.9 F 104 H 22 100/59 83 L 07/12/20 11:01 156/85 11/19/18 08:00 140/88 11/17/18 12:00 114/75 General Limitations: Altered Mental Status General Appearance: Lethargic and In Distress Head Head Exam: Normal Inspection and Atraumatic Eyes Eye exam: PERRL Pupils: Regular, Round: Bilateral ENT ENT Exam: Mucous Membranes Dry Neck Neck Exam: Normal Inspection and Full ROM Chest Chest Inspection: Normal Inspection and Symmetric Chest Wall Rise Respiratory Respiratory Exam: Bilateral: Crackles Cardiovascular Cardiovascular Exam: +S1 and +S2 Abdominal Exam Abdominal Exam: Normal Bowel Sounds, Soft and Other (umbilical hernia ) Extremities Extremities Exam: Normal Inspection and Other (no calf tenderness ) Back Back Exam: Other (po soreness over the pelvis on palpataion ) Neurological Neurological Exam: Other (confused but arousable ) Motor Strength - LUE: 5/5 Motor Strength - RUE: 5/5 Skin Skin Exam: Warm and Dry MDM Additional Information Obtained Findings: cough ,hypoxia ,fall change in mentaion dehydration ,exposure to covid COURSE Treatment Treatment: labs, ct scan, xray Pt has hypoxia with oxygen sat over 93% on ventimask, covid 19 pneumonia and dehydration .will speak with hospitlist ot admit ROR Labs Reviewed Result Diagrams: 02/22/21 14:35 02/22/21 14:35 Laboratory: WBC 6.5 X10^3/uL (3.6-10.0) 02/22/21 14:35 RBC 3.77 X10^6/uL (4.7-6.0) L 02/22/21 14:35 Hgb 11.5 g/dL (13.5-18.0) L 02/22/21 14:35 Hct 34.2 % (42.0-54.0) L 02/22/21 14:35 MCV 90.8 fL (80.0-100.0) 02/22/21 14:35 MCH 30.4 pg (27.0-34.0) 02/22/21 14:35 MCHC 33.5 g/dL (33.0-35.0) 02/22/21 14:35 RDW 15.6 % (11.6-16.5) 02/22/21 14:35 Plt Count 421 X10^3/uL (150.0-450.0) 02/22/21 14:35 MPV 7.5 fL (7.4-11.0) 02/22/21 14:35 Neut % (Auto) 80.8 % (42.0-75.0) H 02/22/21 14:35 Lymph % (Auto) 9.9 % (21.0-51.0) L 02/22/21 14:35 [place] % (Auto) 8.2 % (0.0-13.0) 02/22/21 14:35 Eos % (Auto) 0.1 % (0.9-2.9) L 02/22/21 14:35 Baso % (Auto) 1.0 % (0.2-1.0) 02/22/21 14:35 Neut # (Auto) 5.2 x10^3/uL (2.2-4.8) H 02/22/21 14:35 Lymph # (Auto) 0.6 X10^3/uL (1.3-2.9) L 02/22/21 14:35 [place] # (Auto) 0.5 x10^3/uL (0.3-0.8) 02/22/21 14:35 Eos # (Auto) 0.0 x10^3/uL (0.0-0.2) 02/22/21 14:35 Baso # (Auto) 0.1 X10^3/uL (0.0-0.1) 02/22/21 14:35 Absolute Nucleated RBC 0.2 /100WBC 02/22/21 14:35 D-Dimer 2.62 ug/ml (0.0-0.57) H* 02/22/21 14:35 Sample Site Rra 02/22/21 14:30 ABG pH 7.320 (7.35-7.45) L 02/22/21 14:30 ABG pCO2 39.0 mmHg (35.0-45.0) 02/22/21 14:30 ABG pO2 52.0 mmHg (80.0-100.0) L 02/22/21 14:30 ABG HCO3 20.1 mmol/L (22-26) L 02/22/21 14:30 ABG O2 Saturation 83.0 % (90-100) L* 02/22/21 14:30 ABG Base Excess -5.6 mmol/L (-2.0-2.0) L 02/22/21 14:30 Wil Test Pos 02/22/21 14:30 A-a Gradient 213.0 mmHg 02/22/21 14:30 FiO2 44.0 02/22/21 14:30 Blood Gas Comments Pt jeanna well eb 02/22/21 14:30 Sodium 138 mmol/L (136-145) 02/22/21 14:35 Corrected Sodium 139 mmol/L (136-145) 02/22/21 14:35 Potassium 4.7 mmol/L (3.5-5.1) 02/22/21 14:35 Chloride 103 mmol/L (98-107) 02/22/21 14:35 Carbon Dioxide 22.9 mmol/L (21-32) 02/22/21 14:35 BUN 47 mg/dL (7-18) H 02/22/21 14:35 Creatinine 1.66 mg/dL (0.70-1.30) H 02/22/21 14:35 Est GFR (MDRD) Af Amer 53 (>60) L 02/22/21 14:35 Est GFR (MDRD) Non-Af 44 (>60) L 02/22/21 14:35 Glucose 157 mg/dL (65-99) H 02/22/21 14:35 Calcium 7.6 mg/dL (8.5-10.1) L 02/22/21 14:35 Corrected Calcium 9.3 mg/dL (8.5-10.1) 02/22/21 14:35 Ferritin 3268 ng/mL (26-388) H 02/22/21 14:35 Total Bilirubin 0.40 mg/dL (0.2-1.0) 02/22/21 14:35 AST 60 Units/L (15-37) H 02/22/21 14:35 ALT 24 Units/L (12-78) 02/22/21 14:35 Alkaline Phosphatase 70 Units/L (46-116) 02/22/21 14:35 Creatine Kinase 711 Units/L (39-308) H 02/22/21 14:35 CK-MB (CK-2) 1.2 ng/mL (0-4.0) 02/22/21 14:35 CK/CKMB % Calc 0.2 % (<4) 02/22/21 14:35 Troponin I < 0.02 ng/mL (0-1.5) 02/22/21 14:35 C-Reactive Protein 237.60 mg/L (0-3.0) H 02/22/21 14:35 Total Protein 6.4 g/dL (6.4-8.2) 02/22/21 14:35 Albumin 1.9 g/dL (3.4-5.0) L 02/22/21 14:35 Globulin 4.5 g/dL (2.5-4.5) 02/22/21 14:35 Albumin/Globulin Ratio 0.4 Ratio (1.1-2.1) L 02/22/21 14:35 SARS CoV-2 RNA Rapid ALPESH Positive (NEGATIVE) A 02/22/21 14:32 Opioid Opioid Risk Tool Age (Etienne box if 16-45): No History of Preadolescent Sexual Abuse: No Total: 0 Total Score Risk Category: Low Risk Copyright: Mauricio VILLEGAS predicting aberrant behaviors Diagnosis Discharge Problem: Pneumonia due to COVID-19 virus, Hypoxia, Dehydration DM2 (diabetes mellitus, type 2) Qualifiers: Diabetes mellitus assistant terminal manager insulin use: without assistant terminal manager use
--- NOTE | 2021-02-22 15:51 | CT ---
HISTORYAMSSTUDYBRAIN W/O CONCOMPARISONJanuary 2020TECHNIQUEAxial non-contrast images of the head were obtained with coronal and sagittal reformats provided.Radiation dose: 1258.70 mGy-cm total DLPFINDINGSHypoattenuating structure overlying the suprasellar region measuring 2.1 x 1.7 x 1.6 cm; without significant change.No abnormal areas of acute attenuation in the brain parenchyma.Campos-white differentiation remains intact.No intracranial, extra-axial, fluid collection.No hemorrhage.Periventricular chronic microvascular disease.No mass, mass effect or midline shift.Age related brain parenchymal global atrophy.No ventriculomegaly.No acute fracture.Sinuses are well aerated.Mastoid air cells are well aerated.Globes and intra-orbital contents are unremarkable.IMPRESSION1. Hypoattenuating structure overlying the suprasellar region measuring 2.1 x 1.7 x 1.6 cm; without significant change. Finding could represent benign cystic lesion, epidermoid or cystic neoplasm. Recommend a MRI with and without contrast for further characterization.2. Otherwise, no acute intracranial abnormality detected.Electronically signed by: Lewis Chavez (Feb 22, 2021 15:49:22)
[2021-02-22] MEDS ORDERED: NS 100 ML IV 100 ML ONE ×2 (15:54→19:19)
--- NOTE | 2021-02-22 16:27 | RAD ---
HISTORYFALLSTUDYPELVISCOMPARISONNone availableTECHNIQUEAP pelvisFINDINGSNo fracture or dislocation.No rmal joint spaces.Soft tissues are unremarkable.Moderate degenerative disc disease in the lower lumba r spine.IMPRESSIONNo acute osseous abnormality.Electronically signed by: Lewis Chavez (Feb 22, 2021 16:24:53)
--- NOTE | 2021-02-22 16:27 | RAD ---
HISTORYAMS, HYPOXIA, SOBSTUDYCHEST, [address] 07/12/2020FINDINGSThe cardiomediastinal silhouette is stable. Diffuse bilateral airspace opacities, right greater than left. The bony thorax appears intact.IMPRESSIONBilateral airspace opacities concerning for pneumonia. Recommend follow-up to resolution.Electronically signed by: MARIE KING (Feb 22, 2021 16:24:48)
--- NOTE | 2021-02-22 17:15 | CT ---
HISTORYSOB, HYPOXIA, AMSSTUDYCTA CHESTCOMPARISONChest radiograph, February 22, 2021 and CTA chest, July 12, 2020TECHNIQUE[address] CT images of the chest were obtained after the administration of 75 mL Omnipaque 350 IV contrast utilizing a CTA protocol. 3D MIPS were performed and reviewed for further evaluation.Radiation dose: 725.60 mGy-cm total DLPFINDINGSNo significant pericardial effusion.No mediastinal or hilar lymphadenopathy.Aorta is normal in caliber without dissection.Pulmonary arteries are normal in caliber without filling defects to suggest a pulmonary embolus.Airways are widely patent.Thyroid appears normal.No pleural effusion.Diffuse bilateral ground-glass airspace opacities throughout both lungs with consolidation in the posterior lung bases.Mild centrilobular emphysema.No pneumothorax.No concerning lung parenchymal lesion identified.Sliding-type hiatal hernia.Thickening of both adrenal glands with no focal nodule identified.Imaged portion of the upper abdomen is unremarkable.No acute osseous abnormality.Mild multilevel degenerative disc disease without vertebral body height loss.IMPRESSION1. Diffuse bilateral ground-glass airspace opacities throughout both lungs with consolidation in the posterior lung bases. Findings are concerning for an atypical/viral infectious process. Recommend correlation with COVID-19 testing.2. No pulmonary embolus identified.3. Mild centrilobular emphysema.4. Sliding-type hiatal hernia.Electronically signed by: Lewis Chavez (Feb 22, 2021 17:13:12)
[2021-02-22] MEDS ORDERED: NS 1000 ML 1,000 ML IV ONE (19:12)
[2021-02-22] MEDS ORDERED: REMDESIVIR 200 MG in NS 100 ML IV 140 ML IV ONE (19:13)
[2021-02-22] MEDS ORDERED: DECADRON INJ IVP ONE (19:14)
[2021-02-22] MEDS ORDERED: REMDESIVIR IV ONE (19:19)
[2021-02-22] MEDS ORDERED: DECADRON INJ ONE (19:19)
[2021-02-22] MEDS ORDERED: NS 1000 ML 1,000 ML ONE (19:19)
[2021-02-22] MEDS: ZESTRIL TAB 10 MG PO SCH (20:29)
[2021-02-23] MEDS ORDERED: DUONEB 0.5 MG/3 MG (3 mL) NEB PRN (02:10)
[2021-02-23] MEDS ORDERED: PERIACTIN TAB 4 MG PO PRN (07:04)
[2021-02-23] MEDS ORDERED: ZESTRIL TAB 10 MG ONE (07:07)
[2021-02-23] MEDS ORDERED: COREG TAB 3.125 MG ONE (07:08)
[2021-02-23] MEDS ORDERED: SOLU-Medrol 125 MG VIAL ONE ×3 (07:14→15:34)
[2021-02-23] MEDS ORDERED: PHARMACY CONSULT - IVERMECTIN XX SCH (08:00)
[2021-02-23 08:09] LABS: ABG BASE EXCESS -8.6 mmol/L (-2.0-2.0); ABG HCO3 19.2 mmol/L (22-26)
[2021-02-23 08:10] LABS: ABG ALLEN TEST POS
[2021-02-23] MEDS: ZESTRIL TAB 10 MG PO SCH (08:38)
[2021-02-23] MEDS: COREG TAB 3.125 MG PO SCH (08:39)
[2021-02-23] MEDS ORDERED: IVERMECTIN ONE (08:51)
[2021-02-23] MEDS ORDERED: THIAMINE HCL INJ ONE (08:52)
[2021-02-23] MEDS ORDERED: LOVENOX INJ 120 MG SYR SC ONE (08:52)
[2021-02-23] MEDS ORDERED: PROTONIX INJ 40 MG VIAL ONE (08:53)
[2021-02-23] MEDS ORDERED: PEPCID TAB 40 MG ONE (08:53)
[2021-02-23] MEDS ORDERED: LIPITOR TAB 80 MG ONE (08:53)
[2021-02-23] MEDS ORDERED: ZINC SULFATE ONE (08:53)
[2021-02-23] MEDS ORDERED: VITAMIN D (1.25MG) PO SCH (09:00)
[2021-02-23] MEDS ORDERED: VITAMIN A PO SCH (09:00)
[2021-02-23] MEDS ORDERED: IVERMECTIN PO SCH (09:00)
[2021-02-23] MEDS ORDERED: BROVANA IN SCH (09:00)
[2021-02-23] MEDS ORDERED: PULMICORT NEB TX 0.5 MG NEB SCH (09:00)
[2021-02-23] MEDS: ASCORBIC ACID INJ MULTI-DOSE VIAL 1,500 MG in NS 100 ML IV 100 ML IV SCH ×3 (09:01→15:36)
[2021-02-23] MEDS: CYTOTEC PO SCH ×2 (09:02→15:36)
[2021-02-23] MEDS: LOVENOX INJ 120 MG SYR SC SCH ×2 (09:02→09:04)
[2021-02-23] MEDS: IVERMECTIN PO SCH (09:02)
[2021-02-23] MEDS: SOLU-Medrol 125 MG VIAL IVP SCH ×2 (09:03→15:36)
[2021-02-23] MEDS: ZINC SULFATE PO SCH (09:03)
[2021-02-23] MEDS: LIPITOR TAB 80 MG PO SCH (09:03)
[2021-02-23] MEDS: PEPCID TAB 20 MG PO SCH (09:04)
[2021-02-23] MEDS: PROTONIX INJ 40 MG VIAL IVP SCH (09:04)
[2021-02-23] MEDS: THIAMINE HCL INJ IVP SCH (09:04)
[2021-02-23] MEDS ORDERED: NS 1000 ML 1,000 ML ONE (09:33)
[2021-02-23] MEDS: BROVANA IN SCH ×2 (09:45→22:12)
[2021-02-23] MEDS: PULMICORT NEB TX 0.5 MG NEB SCH ×2 (09:45→22:12)
[2021-02-23] MEDS: NS 1000 ML 1,000 ML IV SCH (11:17)
[2021-02-23] MEDS ORDERED: NS 50 ML IV 50 ML IV ONE (15:34)
[2021-02-23] MEDS: HumuLIN R SUBCUT PRN (17:12)
[2021-02-23] MEDS ORDERED: HumuLIN R ONE (17:13)
[2021-02-24] MEDS: SOLU-Medrol 125 MG VIAL IVP SCH ×6 (02:25→22:26)
[2021-02-24] MEDS: SNACK - Diabetic Appropriate PO SCH ×2 (02:25→20:50)
[2021-02-24] MEDS: ASCORBIC ACID INJ MULTI-DOSE VIAL 1,500 MG in NS 100 ML IV 100 ML IV SCH ×5 (02:26→21:10)
[2021-02-24] MEDS: LOVENOX INJ 120 MG SYR SC SCH ×4 (02:29→21:00)
[2021-02-24] MEDS: PROTONIX INJ 40 MG VIAL IVP SCH ×3 (02:32→21:00)
[2021-02-24] MEDS: MELATONIN PO SCH ×2 (02:32→20:51)
[2021-02-24] MEDS: THIAMINE HCL INJ IVP SCH ×3 (02:32→21:05)
[2021-02-24] MEDS: ZESTRIL TAB 10 MG PO SCH ×3 (02:33→20:52)
[2021-02-24] MEDS: CYTOTEC PO SCH ×4 (02:33→21:11)
[2021-02-24] MEDS: ZINC SULFATE PO SCH ×3 (02:33→20:52)
[2021-02-24] MEDS ORDERED: SOLU-Medrol 125 MG VIAL ONE ×2 (02:40→09:36)
[2021-02-24] MEDS ORDERED: NS 100 ML IV 100 ML ONE ×2 (02:41→09:37)
[2021-02-24] MEDS ORDERED: ASCORBIC ACID INJ MULTI-DOSE VIAL IV ONE ×2 (02:42→09:38)
[2021-02-24 07:09] LABS: BASOPHILS # (AUTO) 0.1 X10^3/uL (0.0-0.1); BASOPHILS % (AUTO) 0.7 % (0.2-1.0); HEMATOCRIT 38.9 % (42.0-54.0); HEMOGLOBIN 13.2 g/dL (13.5-18.0); LYMPHOCYTES # (AUTO) 0.9 X10^3/uL (1.3-2.9); MEAN CORPUSCULAR HGB CONC 33.9 g/dL (33.0-35.0); MEAN CORPUSCULAR VOLUME 91.6 fL (80.0-100.0); MEAN PLATELET VOLUME 7.3 fL (7.4-11.0); MONOCYTES # (AUTO) 0.4 x10^3/uL (0.3-0.8); MONOCYTES % (AUTO) 3.7 % (0.0-13.0); NEUTROPHILS # (AUTO) 8.8 x10^3/uL (2.2-4.8); NEUTROPHILS % (AUTO) 86.6 % (42.0-75.0); PLATELET COUNT 530 X10^3/uL (150.0-450.0); RED BLOOD COUNT 4.25 X10^6/uL (4.7-6.0); RED CELL DISTRIBUTION WIDTH 16.3 % (11.6-16.5); WHITE BLOOD COUNT 10.2 X10^3/uL (3.6-10.0)
[2021-02-24 07:36] LABS: ALANINE AMINOTRANSFERASE 24 Units/L (12-78); ALBUMIN 1.9 g/dL (3.4-5.0); ALKALINE PHOSPHATASE 89 Units/L (46-116); ASPARTATE AMINO TRANSFERASE 48 Units/L (15-37); BLOOD UREA NITROGEN 39 mg/dL (7-18); CALCIUM 8.5 mg/dL (8.5-10.1); CHLORIDE 111 mmol/L (98-107); COR CA(FOR HYPOALB) 10.2 mg/dL (8.5-10.1); COR NA(FOR HYPERGLY) 154 mmol/L (136-145); CREATININE 1.39 mg/dL (0.70-1.30); TOTAL PROTEIN 7.2 g/dL (6.4-8.2); eGFR NON BLACK RACES 54 (>60)
[2021-02-24 07:43] LABS: CARBON DIOXIDE 23.7 mmol/L (21-32)
[2021-02-24 07:52] LABS: SODIUM 151 mmol/L (136-145)
[2021-02-24] MEDS ORDERED: PEPCID TAB 20 MG ONE (09:35)
[2021-02-24] MEDS ORDERED: THIAMINE HCL INJ ONE (09:36)
[2021-02-24] MEDS ORDERED: ZINC SULFATE ONE (09:36)
[2021-02-24] MEDS ORDERED: ZESTRIL TAB 10 MG ONE (09:36)
[2021-02-24] MEDS ORDERED: LOVENOX INJ 120 MG SYR SC ONE (09:36)
[2021-02-24] MEDS ORDERED: LIPITOR TAB 80 MG ONE (09:36)
[2021-02-24] MEDS ORDERED: LR 1000 ML IV 2,000 ML IV ONE (09:37)
[2021-02-24] MEDS ORDERED: PROTONIX INJ 40 MG VIAL ONE (09:37)
[2021-02-24] MEDS: LR 1000 ML IV 1,000 ML IV ONE ×2 (09:40→09:42)
[2021-02-24] MEDS: LR 1000 ML IV 1,000 ML IV SCH (09:42)
[2021-02-24] MEDS: COREG TAB 3.125 MG PO SCH (09:44)
[2021-02-24] MEDS: LIPITOR TAB 80 MG PO SCH (09:45)
[2021-02-24] MEDS: BROVANA IN SCH ×2 (09:45→20:25)
[2021-02-24] MEDS: PULMICORT NEB TX 0.5 MG NEB SCH ×2 (09:45→20:25)
[2021-02-24] MEDS: PEPCID TAB 20 MG PO SCH (09:46)
[2021-02-24] MEDS ORDERED: IVERMECTIN ONE ×2 (10:45→10:52)
[2021-02-24] MEDS: IVERMECTIN PO SCH (10:54)
[2021-02-24] MEDS: NS 1000 ML 1,000 ML IV SCH (11:26)
[2021-02-24] MEDS: HumuLIN R SUBCUT PRN (16:52)
[2021-02-24] MEDS ORDERED: ATIVAN INJ 2 MG VIAL ONE (19:44)
[2021-02-24] MEDS: ATIVAN INJ 2 MG VIAL IVP PRN (19:48)
[2021-02-25] MEDS: LR 1000 ML IV 1,000 ML IV SCH ×3 (02:59→15:34)
[2021-02-25] MEDS: ASCORBIC ACID INJ MULTI-DOSE VIAL 1,500 MG in NS 100 ML IV 100 ML IV SCH ×4 (02:59→21:34)
[2021-02-25] MEDS: SOLU-Medrol 125 MG VIAL IVP SCH ×4 (03:30→21:38)
[2021-02-25] MEDS: ATIVAN INJ 2 MG VIAL IVP PRN ×4 (03:45→21:33)
[2021-02-25 05:00] LABS: BASOPHILS # (AUTO) 0.1 X10^3/uL (0.0-0.1); BASOPHILS % (AUTO) 0.6 % (0.2-1.0); HEMOGLOBIN 12.6 g/dL (13.5-18.0); LYMPHOCYTES # (AUTO) 0.6 X10^3/uL (1.3-2.9); LYMPHOCYTES % (AUTO) 6.2 % (21.0-51.0); MEAN CORPUSCULAR HEMOGLOBIN 30.7 pg (27.0-34.0); MEAN CORPUSCULAR VOLUME 90.1 fL (80.0-100.0); MEAN PLATELET VOLUME 7.1 fL (7.4-11.0); MONOCYTES # (AUTO) 0.4 x10^3/uL (0.3-0.8); MONOCYTES % (AUTO) 3.8 % (0.0-13.0); NEUTROPHILS # (AUTO) 8.9 x10^3/uL (2.2-4.8); NEUTROPHILS % (AUTO) 89.4 % (42.0-75.0); PLATELET COUNT 521 X10^3/uL (150.0-450.0); RED CELL DISTRIBUTION WIDTH 16.7 % (11.6-16.5)
[2021-02-25 05:25] LABS: ALANINE AMINOTRANSFERASE 22 Units/L (12-78); ALBUMIN 1.8 g/dL (3.4-5.0); ALKALINE PHOSPHATASE 94 Units/L (46-116); ASPARTATE AMINO TRANSFERASE 41 Units/L (15-37); BLOOD UREA NITROGEN 36 mg/dL (7-18); CALCIUM 8.6 mg/dL (8.5-10.1); CARBON DIOXIDE 24.3 mmol/L (21-32); COR CA(FOR HYPOALB) 10.4 mg/dL (8.5-10.1); COR NA(FOR HYPERGLY) 158 mmol/L (136-145); CREATININE 1.31 mg/dL (0.70-1.30); TOTAL PROTEIN 6.7 g/dL (6.4-8.2); eGFR NON BLACK RACES 57 (>60)
[2021-02-25 05:30] LABS: CHLORIDE 117 mmol/L (98-107); SODIUM 154 mmol/L (136-145)
[2021-02-25] MEDS: HumuLIN R SUBCUT PRN ×3 (06:20→21:35)
[2021-02-25] MEDS: CYTOTEC PO SCH ×3 (06:21→21:34)
[2021-02-25] MEDS: PULMICORT NEB TX 0.5 MG NEB SCH ×2 (09:25→20:55)
[2021-02-25] MEDS: BROVANA IN SCH ×2 (09:25→20:55)
[2021-02-25] MEDS: THIAMINE HCL INJ IVP SCH ×2 (10:05→21:36)
[2021-02-25] MEDS: LOVENOX INJ 120 MG SYR SC SCH ×2 (10:06→21:35)
[2021-02-25] MEDS: PROTONIX INJ 40 MG VIAL IVP SCH ×2 (10:06→21:33)
[2021-02-25] MEDS ORDERED: LR 1000 ML IV 1,000 ML IV ONE (10:46)
[2021-02-25] MEDS: COREG TAB 3.125 MG PO SCH (11:29)
[2021-02-25] MEDS: IVERMECTIN PO SCH (11:29)
[2021-02-25] MEDS: ZESTRIL TAB 10 MG PO SCH ×2 (11:30→21:36)
[2021-02-25] MEDS: LIPITOR TAB 80 MG PO SCH (11:30)
[2021-02-25] MEDS: VITAMIN A PO SCH (11:30)
[2021-02-25] MEDS: PEPCID TAB 20 MG PO SCH (11:30)
[2021-02-25] MEDS: VITAMIN D3 125 mcg (5,000 UNITS) PO SCH (11:30)
[2021-02-25] MEDS: ZINC SULFATE PO SCH ×2 (11:31→21:34)
[2021-02-25] MEDS: SNACK - Diabetic Appropriate PO SCH (20:40)
[2021-02-25] MEDS: MELATONIN PO SCH (21:34)
[2021-02-25] MEDS: MORPHINE SULFATE INJ 2 MG INJ IVP PRN (22:45)
[2021-02-25] MEDS ORDERED: MORPHINE SULFATE INJ 2 MG INJ ONE (22:45)
[2021-02-26] MEDS: ZINC SULFATE PO SCH (02:15)
[2021-02-26] MEDS: MELATONIN PO SCH (02:15)
[2021-02-26] MEDS: CYTOTEC PO SCH ×2 (02:15→05:56)
[2021-02-26] MEDS: ASCORBIC ACID INJ MULTI-DOSE VIAL 1,500 MG in NS 100 ML IV 100 ML IV SCH ×4 (02:46→21:14)
[2021-02-26] MEDS: SOLU-Medrol 125 MG VIAL IVP SCH ×4 (02:46→21:15)
[2021-02-26] MEDS: MORPHINE SULFATE INJ 2 MG INJ IVP PRN (02:47)
[2021-02-26 03:45] LABS: ABG BASE EXCESS 2.6 mmol/L (-2.0-2.0); ABG HCO3 28.4 mmol/L (22-26)
[2021-02-26 03:46] LABS: ABG ALLEN TEST POS
[2021-02-26] MEDS: ATIVAN INJ 2 MG VIAL IVP PRN (03:47)
[2021-02-26 05:18] LABS: BASOPHILS % (AUTO) 0.4 % (0.2-1.0); HEMATOCRIT 36.2 % (42.0-54.0); HEMOGLOBIN 12.1 g/dL (13.5-18.0); LYMPHOCYTES # (AUTO) 0.5 X10^3/uL (1.3-2.9); LYMPHOCYTES % (AUTO) 4.4 % (21.0-51.0); MEAN CORPUSCULAR HEMOGLOBIN 30.6 pg (27.0-34.0); MEAN CORPUSCULAR HGB CONC 33.5 g/dL (33.0-35.0); MEAN CORPUSCULAR VOLUME 91.5 fL (80.0-100.0); MEAN PLATELET VOLUME 7.1 fL (7.4-11.0); MONOCYTES # (AUTO) 0.2 x10^3/uL (0.3-0.8); MONOCYTES % (AUTO) 2.2 % (0.0-13.0); NEUTROPHILS # (AUTO) 9.7 x10^3/uL (2.2-4.8); PLATELET COUNT 451 X10^3/uL (150.0-450.0); RED BLOOD COUNT 3.96 X10^6/uL (4.7-6.0); RED CELL DISTRIBUTION WIDTH 16.7 % (11.6-16.5); WHITE BLOOD COUNT 10.4 X10^3/uL (3.6-10.0)
[2021-02-26] MEDS ORDERED: AMIDATE INJ 40 MG VIAL ONE (05:20)
[2021-02-26] MEDS ORDERED: QUELICIN (OR ANECTINE) ONE (05:22)
[2021-02-26] MEDS ORDERED: NS 50 ML IV 50 ML IV ONE (05:23)
[2021-02-26 05:41] LABS: ALANINE AMINOTRANSFERASE 18 Units/L (12-78); ALBUMIN 1.7 g/dL (3.4-5.0); ALKALINE PHOSPHATASE 112 Units/L (46-116); ASPARTATE AMINO TRANSFERASE 41 Units/L (15-37); BLOOD UREA NITROGEN 30 mg/dL (7-18); CALCIUM 8.6 mg/dL (8.5-10.1); CARBON DIOXIDE 31.1 mmol/L (21-32); COR CA(FOR HYPOALB) 10.4 mg/dL (8.5-10.1); COR NA(FOR HYPERGLY) 164 mmol/L (136-145); CREATININE 1.21 mg/dL (0.70-1.30); TOTAL PROTEIN 6.4 g/dL (6.4-8.2); eGFR NON BLACK RACES > 60 (>60)
[2021-02-26 05:48] LABS: CHLORIDE 122 mmol/L (98-107); SODIUM 161 mmol/L (136-145)
[2021-02-26] MEDS ORDERED: QUELICIN (OR ANECTINE) IVP ONE (05:50)
[2021-02-26] MEDS ORDERED: AMIDATE INJ 40 MG VIAL IVP ONE (05:50)
[2021-02-26] MEDS: LR 1000 ML IV 1,000 ML IV SCH ×3 (05:51→14:56)
--- NOTE | 2021-02-26 05:55 | MD.NOTE ---
Provider Note Note Note: ctsp re: intubation; sats consistently in the 70s; rsi with etomidate and succinylcholine; pt intubated by respiratory without incident; bilateral airflow; cxr w/tip ET about an inch about fazal
--- NOTE | 2021-02-26 06:12 | RAD ---
HISTORYET TUBE PLACEMENTSTUDYCHEST, 1 [id number]/21/2021.TECHNIQUEAP view of the chestFINDINGSET tube in good position approximately 4.2 cm from the fazal. Cardiac and mediastinal contours are within normal limits. Mild worsening of bilateral diffuse airspace and interstitial opacities. No discernible pleural effusion or pneumothorax.IMPRESSIONET tube in good position. Interval worsening of pneumonia.Electronically signed by: Yevgeniy Jacobsen (Feb 26, 2021 06:10:23)
[2021-02-26 06:22] LABS: PLATELET MORPHOLOGY COMMENT NORMAL (NORMAL)
[2021-02-26 06:32] LABS: ABG BASE EXCESS 1.2 mmol/L (-2.0-2.0); ABG HCO3 28.3 mmol/L (22-26)
[2021-02-26 06:33] LABS: ABG ALLEN TEST POS
[2021-02-26] MEDS: LOVENOX INJ 120 MG SYR SC SCH ×2 (08:59→21:15)
[2021-02-26] MEDS: THIAMINE HCL INJ IVP SCH ×2 (09:00→21:15)
[2021-02-26] MEDS: PROTONIX INJ 40 MG VIAL IVP SCH ×2 (09:00→21:13)
[2021-02-26] MEDS: BROVANA IN SCH ×2 (09:43→21:00)
[2021-02-26] MEDS: PULMICORT NEB TX 0.5 MG NEB SCH ×2 (09:43→21:00)
[2021-02-26] MEDS ORDERED: ZEMURON 100 MG VIAL ONE (10:50)
[2021-02-26] MEDS: HumuLIN R SUBCUT PRN (11:34)
[2021-02-26] MEDS: DIPRIVAN PREMIX 1 GRAM IV 1,000 MG/100 ML VIAL IV PRN ×2 (11:43→21:10)
[2021-02-26] MEDS: NORCURON INJ 10 MG VIAL 50 MG in NS 50 ML IV 50 ML IV PRN (11:55)
[2021-02-26] MEDS: LACRI-LUBE S.O.P. AFFEYE SCH ×2 (12:20→21:14)
[2021-02-26 12:49] LABS: ABG BASE EXCESS 0.9 mmol/L (-2.0-2.0); ABG HCO3 28.2 mmol/L (22-26)
[2021-02-26 12:51] LABS: ABG ALLEN TEST POSITIVE
[2021-02-26] MEDS ORDERED: PERIACTIN TAB 4 MG NG PRN (13:00)
--- NOTE | 2021-02-26 14:40 | RAD ---
HISTORYNG tube placementSTUDYKUBCOMPARISONNoneFINDINGSThere is a nasogastric tube with its tip within the stomach ho wever the side hole is within the distal esophagus. Advancement is recommended. The abdominal gas pat tern is nonspecific and nonobstructive. No abnormal masses or abnormal calcifications are identified. Regional skeleton is intact. There is a vascular catheter likely in the right femoral vein.IMPRESSIO NNasogastric tube tip within the stomach however the side hole is within the distal esophagus. Advanc ement is recommended.Electronically signed by: MARIE KING (Feb 26, 2021 14:38:59)
--- NOTE | 2021-02-26 15:27 | RAD ---
NG tube repositioningCOMPARISONAugust 2020 radiographFINDINGSNG tube tip and side port have advanced somewhat, now projecting over the left upper quadrant.Free air or pneumatosis seen. Prominent heart size and patchy pulmonary opacities notedIMPRESSIONNG tube is been advanced, now with tip and side port over the stomachElectronically signed by: FOX FRASER (Feb 26, 2021 15:25:12)
[2021-02-26] MEDS: CYTOTEC NG SCH ×2 (17:55→21:16)
[2021-02-26] MEDS: ZINC SULFATE NG SCH (21:14)
[2021-02-26] MEDS: SNACK - Diabetic Appropriate PO SCH (21:14)
[2021-02-26] MEDS: MELATONIN NG SCH (21:15)
[2021-02-26] MEDS: ZESTRIL TAB 10 MG NG SCH (21:16)
[2021-02-27] MEDS: ZINC SULFATE PO SCH (02:13)
[2021-02-27] MEDS: PEPCID TAB 20 MG PO SCH (02:14)
[2021-02-27] MEDS: IVERMECTIN PO SCH (02:14)
[2021-02-27] MEDS: COREG TAB 3.125 MG PO SCH (02:14)
[2021-02-27] MEDS: ZESTRIL TAB 10 MG PO SCH (02:14)
[2021-02-27] MEDS: LIPITOR TAB 80 MG PO SCH (02:15)
[2021-02-27] MEDS: VITAMIN A PO SCH (02:15)
[2021-02-27] MEDS: VITAMIN D3 125 mcg (5,000 UNITS) PO SCH (02:15)
[2021-02-27] MEDS: ASCORBIC ACID INJ MULTI-DOSE VIAL 1,500 MG in NS 100 ML IV 100 ML IV SCH ×4 (04:00→20:54)
[2021-02-27] MEDS: LR 1000 ML IV 1,000 ML IV SCH (04:00)
[2021-02-27] MEDS: SOLU-Medrol 125 MG VIAL IVP SCH ×3 (04:01→20:55)
[2021-02-27 04:54] LABS: ABG BASE EXCESS 2.6 mmol/L (-2.0-2.0)
[2021-02-27 04:55] LABS: ABG ALLEN TEST POS
[2021-02-27 06:09] LABS: BASOPHILS % (AUTO) 0.1 % (0.2-1.0); HEMATOCRIT 38.1 % (42.0-54.0); HEMOGLOBIN 12.5 g/dL (13.5-18.0); LYMPHOCYTES # (AUTO) 0.4 X10^3/uL (1.3-2.9); LYMPHOCYTES % (AUTO) 3.6 % (21.0-51.0); MEAN CORPUSCULAR HEMOGLOBIN 30.3 pg (27.0-34.0); MEAN CORPUSCULAR HGB CONC 32.8 g/dL (33.0-35.0); MEAN CORPUSCULAR VOLUME 92.5 fL (80.0-100.0); MEAN PLATELET VOLUME 7.5 fL (7.4-11.0); MONOCYTES # (AUTO) 0.2 x10^3/uL (0.3-0.8); MONOCYTES % (AUTO) 1.7 % (0.0-13.0); NEUTROPHILS # (AUTO) 10.9 x10^3/uL (2.2-4.8); NEUTROPHILS % (AUTO) 94.6 % (42.0-75.0); PLATELET COUNT 410 X10^3/uL (150.0-450.0); RED BLOOD COUNT 4.12 X10^6/uL (4.7-6.0); RED CELL DISTRIBUTION WIDTH 17.4 % (11.6-16.5); WHITE BLOOD COUNT 11.5 X10^3/uL (3.6-10.0)
[2021-02-27] MEDS: CYTOTEC NG SCH ×3 (06:28→21:05)
[2021-02-27 06:58] LABS: ALANINE AMINOTRANSFERASE 16 Units/L (12-78); ALBUMIN 1.5 g/dL (3.4-5.0); ALKALINE PHOSPHATASE 119 Units/L (46-116); ASPARTATE AMINO TRANSFERASE 26 Units/L (15-37); BLOOD UREA NITROGEN 32 mg/dL (7-18); CALCIUM 8.6 mg/dL (8.5-10.1); COR CA(FOR HYPOALB) 10.6 mg/dL (8.5-10.1); COR NA(FOR HYPERGLY) 166 mmol/L (136-145); CREATININE 1.12 mg/dL (0.70-1.30); TOTAL PROTEIN 6.3 g/dL (6.4-8.2); eGFR NON BLACK RACES > 60 (>60)
--- NOTE | 2021-02-27 07:00 | RAD ---
HISTORYVentilator dependenceSTUDYPortable AP [id number]/25/2021FINDINGSStable heart size and contour with persistent bilateral interstitial and airspace infiltrates, essentially unchanged in the right lung and improved on the left. ET tube remains in mid trachea. A nasogastric tube is now present with the tip at or near the GE junction.IMPRESSIONPersistent bilateral pneumonia with interval improvement in the left lung. Interval insertion of enteric tube with termination at or near the GE junction.Electronically signed by: LAURA REDDY (Feb 27, 2021 06:58:35)
[2021-02-27] MEDS: HumuLIN R SUBCUT PRN ×4 (07:01→20:53)
[2021-02-27] MEDS: DIPRIVAN PREMIX 1 GRAM IV 1,000 MG/100 ML VIAL IV PRN ×2 (07:41→16:19)
[2021-02-27 07:43] LABS: CHLORIDE 122 mmol/L (98-107); SODIUM 161 mmol/L (136-145)
[2021-02-27 07:53] LABS: BAND NEUTROPHILS % 9 % (0-10)
[2021-02-27 07:54] LABS: PLATELET MORPHOLOGY COMMENT NORMAL (NORMAL)
[2021-02-27] MEDS: BROVANA IN SCH ×2 (08:06→21:20)
[2021-02-27] MEDS: PULMICORT NEB TX 0.5 MG NEB SCH ×2 (08:06→21:20)
[2021-02-27] MEDS ORDERED: NS 1/2 1000 ML IV 1,000 ML IV ONE ×2 (08:23→21:09)
[2021-02-27] MEDS: NS 1/2 1000 ML IV 1,000 ML IV SCH ×2 (08:30→21:06)
[2021-02-27] MEDS: IVERMECTIN NG SCH (08:34)
[2021-02-27] MEDS: COREG TAB 3.125 MG NG SCH (08:34)
[2021-02-27] MEDS: LIPITOR TAB 80 MG NG SCH (08:35)
[2021-02-27] MEDS: LACRI-LUBE S.O.P. AFFEYE SCH ×2 (08:35→20:55)
[2021-02-27] MEDS: LOVENOX INJ 120 MG SYR SC SCH ×2 (08:35→20:56)
[2021-02-27] MEDS: PEPCID TAB 20 MG NG SCH (08:36)
[2021-02-27] MEDS: THIAMINE HCL INJ IVP SCH ×2 (08:36→20:56)
[2021-02-27] MEDS: PROTONIX INJ 40 MG VIAL IVP SCH ×2 (08:36→20:54)
[2021-02-27] MEDS: ZINC SULFATE NG SCH ×2 (08:37→20:55)
[2021-02-27] MEDS: VITAMIN D3 125 mcg (5,000 UNITS) NG SCH (08:37)
[2021-02-27] MEDS: ZESTRIL TAB 10 MG NG SCH ×2 (08:38→20:57)
[2021-02-27] MEDS: VITAMIN A NG SCH (09:10)
[2021-02-27] MEDS: AVELOX IV 400 MG/250 ML BAG 400 MG/250 ML PIGGYBACK IV SCH (09:10)
[2021-02-27] MEDS: NORCURON INJ 10 MG VIAL 50 MG in NS 50 ML IV 50 ML IV PRN (10:00)
[2021-02-27] MEDS ORDERED: LR 1000 ML IV 1,000 ML IV ONE (11:09)
[2021-02-27] MEDS ORDERED: LR 1000 ML IV 500 ML IV ONE (11:14)
[2021-02-27] MEDS: LEVOPHED INJ 8 MG in D5W 250 ML IV 242 ML IV PRN (11:30)
[2021-02-27] MEDS: SNACK - Diabetic Appropriate PO SCH (20:54)
[2021-02-27] MEDS: MELATONIN NG SCH (20:55)
[2021-02-28] MEDS: LEVOPHED INJ 8 MG in D5W 250 ML IV 242 ML IV PRN ×3 (00:42→23:35)
[2021-02-28] MEDS: ASCORBIC ACID INJ MULTI-DOSE VIAL 1,500 MG in NS 100 ML IV 100 ML IV SCH ×4 (03:26→21:09)
[2021-02-28] MEDS: SOLU-Medrol 125 MG VIAL IVP SCH ×4 (03:27→21:10)
[2021-02-28 04:50] LABS: ABG BASE EXCESS 4.1 mmol/L (-2.0-2.0)
[2021-02-28 04:51] LABS: ABG ALLEN TEST POS; ABG HCO3 31.6 mmol/L (22-26)
[2021-02-28] MEDS: DIPRIVAN PREMIX 1 GRAM IV 1,000 MG/100 ML VIAL IV PRN ×2 (05:25→14:46)
[2021-02-28 05:56] LABS: ALBUMIN 1.1 g/dL (3.4-5.0); CALCIUM 7.5 mg/dL (8.5-10.1); CARBON DIOXIDE 30.3 mmol/L (21-32); COR CA(FOR HYPOALB) 9.8 mg/dL (8.5-10.1); CREATININE 1.58 mg/dL (0.70-1.30); TOTAL PROTEIN 5.6 g/dL (6.4-8.2)
[2021-02-28 06:11] LABS: BASOPHILS % (AUTO) 0.2 % (0.2-1.0); HEMATOCRIT 36.4 % (42.0-54.0); HEMOGLOBIN 11.8 g/dL (13.5-18.0); LYMPHOCYTES # (AUTO) 0.4 X10^3/uL (1.3-2.9); LYMPHOCYTES % (AUTO) 2.9 % (21.0-51.0); MEAN CORPUSCULAR HEMOGLOBIN 30.3 pg (27.0-34.0); MEAN CORPUSCULAR HGB CONC 32.4 g/dL (33.0-35.0); MEAN CORPUSCULAR VOLUME 93.6 fL (80.0-100.0); MEAN PLATELET VOLUME 7.7 fL (7.4-11.0); MONOCYTES # (AUTO) 0.3 x10^3/uL (0.3-0.8); MONOCYTES % (AUTO) 2.6 % (0.0-13.0); NEUTROPHILS # (AUTO) 12.7 x10^3/uL (2.2-4.8); NEUTROPHILS % (AUTO) 94.3 % (42.0-75.0); PLATELET COUNT 338 X10^3/uL (150.0-450.0); RED BLOOD COUNT 3.89 X10^6/uL (4.7-6.0); RED CELL DISTRIBUTION WIDTH 17.5 % (11.6-16.5); WHITE BLOOD COUNT 13.5 X10^3/uL (3.6-10.0)
[2021-02-28] MEDS: CYTOTEC NG SCH ×2 (06:16→15:36)
[2021-02-28] MEDS: HumuLIN R SUBCUT PRN ×4 (06:18→21:10)
--- NOTE | 2021-02-28 07:05 | RAD ---
HISTORYVentilator dependenceSTUDYPortable AP [id number]/26/2021FINDINGSSimilar normal heart size. Interval increase in diffuse bilateral airspace disease without evidence for pneumothorax. A small left pleural effusion is suggested at the costophrenic angle. Support lines are similar, NG tube passes below the diaphragm tip not visualized. ET tube in mid trachea.IMPRESSIONInterval increase in bilateral infiltrates/pneumonia with small left pleural effusion.Electronically signed by: LAURA REDDY (Feb 28, 2021 07:02:46)
[2021-02-28 07:07] LABS: BAND NEUTROPHILS % 5 % (0-10)
[2021-02-28 07:08] LABS: PLATELET MORPHOLOGY COMMENT NORMAL (NORMAL)
[2021-02-28] MEDS: BROVANA IN SCH ×2 (08:41→21:37)
[2021-02-28] MEDS: PULMICORT NEB TX 0.5 MG NEB SCH ×2 (08:41→21:37)
[2021-02-28] MEDS: PEPCID TAB 20 MG NG SCH (09:20)
[2021-02-28] MEDS: LIPITOR TAB 80 MG NG SCH (09:20)
[2021-02-28] MEDS: LOVENOX INJ 120 MG SYR SC SCH (09:20)
[2021-02-28] MEDS: AVELOX IV 400 MG/250 ML BAG 400 MG/250 ML PIGGYBACK IV SCH (09:20)
[2021-02-28] MEDS: LACRI-LUBE S.O.P. AFFEYE SCH ×2 (09:20→23:32)
[2021-02-28] MEDS: ZINC SULFATE NG SCH (09:20)
[2021-02-28] MEDS: IVERMECTIN NG SCH (09:20)
[2021-02-28] MEDS: VITAMIN A NG SCH (09:20)
[2021-02-28] MEDS: COREG TAB 3.125 MG NG SCH (09:20)
[2021-02-28] MEDS: VITAMIN D3 125 mcg (5,000 UNITS) NG SCH (09:20)
[2021-02-28] MEDS: THIAMINE HCL INJ IVP SCH ×2 (09:20→21:09)
[2021-02-28] MEDS: PROTONIX INJ 40 MG VIAL IVP SCH ×2 (09:20→21:10)
[2021-02-28] MEDS ORDERED: NS 1/2 1000 ML IV 500 ML IV ONE (09:38)
[2021-02-28] MEDS ORDERED: NS 1/2 1000 ML IV 1,000 ML IV ONE (11:12)
[2021-02-28] MEDS ORDERED: AFRIN NASAL SPRAY PRN (15:50)
[2021-02-28] MEDS ORDERED: AFRIN NASAL SPRAY ONE (16:02)
[2021-02-28] MEDS ORDERED: LR 1000 ML IV 1,000 ML IV ONE ×2 (17:27→17:28)
[2021-02-28 18:08] LABS: ABG BASE EXCESS 1.3 mmol/L (-2.0-2.0); ABG HCO3 28.7 mmol/L (22-26)
[2021-02-28 18:10] LABS: ABG ALLEN TEST POS
[2021-02-28] MEDS: NS 1/2 1000 ML IV 1,000 ML IV SCH (19:05)
[2021-02-28 19:13] LABS: HEMATOCRIT 41.6 % (42.0-54.0); HEMOGLOBIN 13.1 g/dL (13.5-18.0)
[2021-02-28] MEDS ORDERED: LOVENOX INJ 120 MG SYR SC SCH (21:00)
[2021-02-28] MEDS: SNACK - Diabetic Appropriate PO SCH (21:09)
[2021-02-28] MEDS ORDERED: NS 100 ML IV 100 ML ONE (21:14)
[2021-02-28] MEDS: MELATONIN NG SCH (23:32)
[2021-03-01] MEDS: NS 1/2 1000 ML IV 1,000 ML IV SCH ×3 (00:04→14:26)
[2021-03-01] MEDS: CYTOTEC NG SCH ×4 (00:46→22:37)
[2021-03-01] MEDS: ZINC SULFATE NG SCH ×3 (00:46→22:37)
[2021-03-01] MEDS: DIPRIVAN PREMIX 1 GRAM IV 1,000 MG/100 ML VIAL IV PRN ×2 (01:47→12:45)
[2021-03-01] MEDS: LEVOPHED INJ 8 MG in D5W 250 ML IV 242 ML IV PRN ×6 (01:48→21:50)
[2021-03-01] MEDS: SOLU-Medrol 125 MG VIAL IVP SCH ×5 (03:14→21:05)
[2021-03-01] MEDS: ASCORBIC ACID INJ MULTI-DOSE VIAL 1,500 MG in NS 100 ML IV 100 ML IV SCH ×4 (03:14→21:04)
[2021-03-01] MEDS ORDERED: LR 1000 ML IV 1,000 ML IV ONE ×5 (03:15→20:16)
[2021-03-01 03:22] LABS: BASOPHILS # (AUTO) 0.1 X10^3/uL (0.0-0.1); BASOPHILS % (AUTO) 0.6 % (0.2-1.0); HEMATOCRIT 44.8 % (42.0-54.0); HEMOGLOBIN 14.2 g/dL (13.5-18.0); LYMPHOCYTES # (AUTO) 0.3 X10^3/uL (1.3-2.9); MEAN CORPUSCULAR HEMOGLOBIN 30.9 pg (27.0-34.0); MEAN CORPUSCULAR HGB CONC 31.7 g/dL (33.0-35.0); MEAN CORPUSCULAR VOLUME 97.7 fL (80.0-100.0); MEAN PLATELET VOLUME 8.3 fL (7.4-11.0); MONOCYTES # (AUTO) 0.4 x10^3/uL (0.3-0.8); MONOCYTES % (AUTO) 2.6 % (0.0-13.0); NEUTROPHILS # (AUTO) 16.2 x10^3/uL (2.2-4.8); NEUTROPHILS % (AUTO) 94.8 % (42.0-75.0); PLATELET COUNT 277 X10^3/uL (150.0-450.0); RED BLOOD COUNT 4.58 X10^6/uL (4.7-6.0); RED CELL DISTRIBUTION WIDTH 18.7 % (11.6-16.5); WHITE BLOOD COUNT 17.1 X10^3/uL (3.6-10.0)
[2021-03-01 03:33] LABS: CALCIUM 6.8 mg/dL (8.5-10.1); CARBON DIOXIDE 31.8 mmol/L (21-32); COR CA(FOR HYPOALB) 9.2 mg/dL (8.5-10.1); CREATININE 2.76 mg/dL (0.70-1.30); TOTAL PROTEIN 5.6 g/dL (6.4-8.2)
[2021-03-01 03:34] LABS: BAND NEUTROPHILS % 8 % (0-10); PLATELET MORPHOLOGY COMMENT NORMAL (NORMAL)
[2021-03-01] MEDS ORDERED: D5W 250 ML IV 250 ML IV ONE ×2 (03:51→08:36)
[2021-03-01] MEDS ORDERED: LEVOPHED INJ ONE (03:51)
[2021-03-01] MEDS: NORCURON INJ 10 MG VIAL 50 MG in NS 50 ML IV 50 ML IV PRN (04:07)
[2021-03-01] MEDS: HumuLIN R SUBCUT PRN ×3 (04:12→21:44)
[2021-03-01 06:53] LABS: ABG BASE EXCESS -4.8 mmol/L (-2.0-2.0); ABG HCO3 24.6 mmol/L (22-26)
[2021-03-01 06:55] LABS: ABG ALLEN TEST POS
[2021-03-01] MEDS: THIAMINE HCL INJ IVP SCH ×2 (09:00→21:05)
[2021-03-01] MEDS: PROTONIX INJ 40 MG VIAL IVP SCH ×2 (09:00→21:05)
[2021-03-01] MEDS: LACRI-LUBE S.O.P. AFFEYE SCH ×2 (09:03→22:36)
[2021-03-01] MEDS: BROVANA IN SCH ×2 (10:33→21:58)
[2021-03-01] MEDS: PULMICORT NEB TX 0.5 MG NEB SCH ×2 (10:33→21:58)
[2021-03-01] MEDS ORDERED: NS 1/2 1000 ML IV 1,000 ML IV ONE (12:22)
[2021-03-01] MEDS: VITAMIN A NG SCH (14:26)
[2021-03-01] MEDS: PEPCID TAB 20 MG NG SCH (14:27)
[2021-03-01] MEDS: COREG TAB 3.125 MG NG SCH (14:27)
[2021-03-01] MEDS: VITAMIN D3 125 mcg (5,000 UNITS) NG SCH (14:27)
[2021-03-01] MEDS: LIPITOR TAB 80 MG NG SCH (14:28)
[2021-03-01] MEDS: AVELOX IV 400 MG/250 ML BAG 400 MG/250 ML PIGGYBACK IV SCH (14:30)
[2021-03-01] MEDS: IVERMECTIN NG SCH (16:15)
[2021-03-01] MEDS: SNACK - Diabetic Appropriate PO SCH (20:06)
[2021-03-01] MEDS ORDERED: DOPAMINE IV PREMIX 400 MG/250 ML 400 MG/250 ML BAG IV ONE (20:36)
[2021-03-01] MEDS: MELATONIN NG SCH (21:05)
[2021-03-01] MEDS: DOPAMINE IV PREMIX 400 MG/250 ML 400 MG/250 ML BAG IV PRN (21:11)
[2021-03-01] MEDS: ZOSYN VIAL 3.375 GRAMS 3.375 G in NS 100 ML IV + SPIKE MINIBAG* 100 ML IV SCH ×2 (21:45)
[2021-03-02] MEDS ORDERED: D5W 250 ML IV 500 ML IV ONE (00:49)
[2021-03-02] MEDS ORDERED: LEVOPHED INJ ONE ×3 (00:49→21:23)
[2021-03-02] MEDS: LEVOPHED INJ 8 MG in D5W 250 ML IV 242 ML IV PRN ×7 (01:12→21:25)
[2021-03-02] MEDS: NS 1/2 1000 ML IV 1,000 ML IV SCH ×3 (01:15→21:00)
[2021-03-02] MEDS: ASCORBIC ACID INJ MULTI-DOSE VIAL 1,500 MG in NS 100 ML IV 100 ML IV SCH ×4 (02:23→21:00)
[2021-03-02] MEDS: SOLU-Medrol 125 MG VIAL IVP SCH ×4 (02:23→21:00)
[2021-03-02] MEDS: DIPRIVAN PREMIX 1 GRAM IV 1,000 MG/100 ML VIAL IV PRN ×2 (04:33→17:50)
[2021-03-02] MEDS ORDERED: D5W 250 ML IV 250 ML IV ONE ×2 (04:45→21:26)
[2021-03-02 05:10] LABS: ABG BASE EXCESS -9.1 mmol/L (-2.0-2.0); ABG HCO3 20.6 mmol/L (22-26)
[2021-03-02 05:11] LABS: ABG ALLEN TEST POS
[2021-03-02] MEDS: CYTOTEC NG SCH ×3 (05:35→21:00)
[2021-03-02] MEDS: ZOSYN VIAL 3.375 GRAMS 3.375 G in NS 100 ML IV + SPIKE MINIBAG* 100 ML IV SCH ×3 (05:35→21:00)
[2021-03-02] MEDS: HumuLIN R SUBCUT PRN ×4 (05:43→21:00)
[2021-03-02 05:47] LABS: BASOPHILS % (AUTO) 0.2 % (0.2-1.0); HEMATOCRIT 43.3 % (42.0-54.0); HEMOGLOBIN 13.7 g/dL (13.5-18.0); LYMPHOCYTES # (AUTO) 0.3 X10^3/uL (1.3-2.9); LYMPHOCYTES % (AUTO) 2.1 % (21.0-51.0); MEAN CORPUSCULAR HEMOGLOBIN 30.4 pg (27.0-34.0); MEAN CORPUSCULAR HGB CONC 31.6 g/dL (33.0-35.0); MEAN CORPUSCULAR VOLUME 96.2 fL (80.0-100.0); MEAN PLATELET VOLUME 9.2 fL (7.4-11.0); MONOCYTES # (AUTO) 0.2 x10^3/uL (0.3-0.8); MONOCYTES % (AUTO) 1.3 % (0.0-13.0); NEUTROPHILS # (AUTO) 14.3 x10^3/uL (2.2-4.8); NEUTROPHILS % (AUTO) 96.4 % (42.0-75.0); PLATELET COUNT 190 X10^3/uL (150.0-450.0); RED CELL DISTRIBUTION WIDTH 18.4 % (11.6-16.5); WHITE BLOOD COUNT 14.8 X10^3/uL (3.6-10.0)
[2021-03-02 06:06] LABS: CALCIUM 6.3 mg/dL (8.5-10.1); CARBON DIOXIDE 25.5 mmol/L (21-32); COR CA(FOR HYPOALB) 8.7 mg/dL (8.5-10.1); CREATININE 3.98 mg/dL (0.70-1.30); TOTAL PROTEIN 5.7 g/dL (6.4-8.2)
--- NOTE | 2021-03-02 06:43 | RAD ---
HISTORYCOVID-19 pneumoniaSTUDYPortable AP [id number]/27/2021FINDINGSThere is no change in heart size or contour or position of support lines. ET tube remains in mid trachea, the tip 4 cm above fazal. Diffuse airspace infiltrates are present with slight interval progression. Minimal left pleural effusion is suggested.IMPRESSIONPersistent bilateral pneumonia with interval progression since previous exam.Electronically signed by: LAURA REDDY (Mar 02, 2021 06:41:43)
[2021-03-02] MEDS: DOPAMINE IV PREMIX 400 MG/250 ML 400 MG/250 ML BAG IV PRN ×2 (07:45→21:50)
[2021-03-02] MEDS: ZINC SULFATE NG SCH ×2 (09:09→21:00)
[2021-03-02 09:10] LABS: BAND NEUTROPHILS % 7 % (0-10); METAMYELOCYTES % 1
[2021-03-02 09:11] LABS: ANISOCYTOSIS SLIGHT; PLATELET MORPHOLOGY COMMENT NORMAL (NORMAL); TARGET CELLS PRESENT
[2021-03-02] MEDS: VITAMIN D3 125 mcg (5,000 UNITS) NG SCH (09:11)
[2021-03-02] MEDS: VITAMIN A NG SCH (09:11)
[2021-03-02] MEDS: THIAMINE HCL INJ IVP SCH ×2 (09:12→21:00)
[2021-03-02] MEDS: PULMICORT NEB TX 0.5 MG NEB SCH ×2 (09:15→20:00)
[2021-03-02] MEDS: BROVANA IN SCH ×2 (09:15→20:00)
[2021-03-02] MEDS: PROTONIX INJ 40 MG VIAL IVP SCH ×2 (09:16→21:00)
[2021-03-02] MEDS: LIPITOR TAB 80 MG NG SCH (09:17)
[2021-03-02] MEDS: PEPCID TAB 20 MG NG SCH (09:17)
[2021-03-02] MEDS: COREG TAB 3.125 MG NG SCH (09:17)
[2021-03-02] MEDS: AVELOX IV 400 MG/250 ML BAG 400 MG/250 ML PIGGYBACK IV SCH (09:18)
[2021-03-02] MEDS: LACRI-LUBE S.O.P. AFFEYE SCH ×2 (09:19→21:00)
[2021-03-02] MEDS ORDERED: KAYEXALATE SUSP PO NR ×2 (13:00)
[2021-03-02] MEDS ORDERED: NS 1000 ML 1,000 ML IV ONE (13:51)
[2021-03-02] MEDS: KAYEXALATE SUSP PO SCH ×2 (15:10→21:00)
[2021-03-02 15:55] LABS: ABG BASE EXCESS -10.3 mmol/L (-2.0-2.0)
[2021-03-02] MEDS: SNACK - Diabetic Appropriate PO SCH (20:00)
[2021-03-02] MEDS: ELIQUIS PO SCH (21:00)
[2021-03-02] MEDS: MELATONIN NG SCH (21:00)
[2021-03-02] MEDS ORDERED: NS 1/2 1000 ML IV 1,000 ML IV ONE (21:44)
[2021-03-03] MEDS: LEVOPHED INJ 8 MG in D5W 250 ML IV 242 ML IV PRN ×2 (01:10→09:18)
[2021-03-03] MEDS: KAYEXALATE SUSP PO SCH ×2 (02:00→08:36)
[2021-03-03] MEDS ORDERED: LR 1000 ML IV 1,000 ML IV ONE ×2 (03:11→03:51)
[2021-03-03] MEDS ORDERED: NS IRRIGATION* 500 ML IR ONE (03:29)
[2021-03-03] MEDS: SOLU-Medrol 125 MG VIAL IVP SCH ×2 (03:45→08:55)
[2021-03-03] MEDS: ASCORBIC ACID INJ MULTI-DOSE VIAL 1,500 MG in NS 100 ML IV 100 ML IV SCH ×2 (03:48→08:39)
[2021-03-03 04:18] LABS: ABG BASE EXCESS -14.7 mmol/L (-2.0-2.0); ABG HCO3 18.2 mmol/L (22-26)
[2021-03-03 04:20] LABS: ABG ALLEN TEST POS
[2021-03-03] MEDS ORDERED: NS 1/2 1000 ML IV 1,000 ML IV ONE ×2 (04:22→12:02)
[2021-03-03] MEDS: NS 1/2 1000 ML IV 1,000 ML IV SCH ×2 (04:27→12:03)
[2021-03-03 05:48] LABS: BASOPHILS % (AUTO) 0.2 % (0.2-1.0); EOSINOPHILS % (AUTO) 0.1 % (0.9-2.9); HEMATOCRIT 39.3 % (42.0-54.0); LYMPHOCYTES # (AUTO) 0.4 X10^3/uL (1.3-2.9); LYMPHOCYTES % (AUTO) 3.1 % (21.0-51.0); MEAN CORPUSCULAR HEMOGLOBIN 30.1 pg (27.0-34.0); MEAN CORPUSCULAR HGB CONC 30.4 g/dL (33.0-35.0); MEAN CORPUSCULAR VOLUME 98.9 fL (80.0-100.0); MEAN PLATELET VOLUME 10.1 fL (7.4-11.0); MONOCYTES # (AUTO) 0.1 x10^3/uL (0.3-0.8); MONOCYTES % (AUTO) 0.8 % (0.0-13.0); NEUTROPHILS # (AUTO) 12.8 x10^3/uL (2.2-4.8); NEUTROPHILS % (AUTO) 95.8 % (42.0-75.0); PLATELET COUNT 130 X10^3/uL (150.0-450.0); RED BLOOD COUNT 3.97 X10^6/uL (4.7-6.0); RED CELL DISTRIBUTION WIDTH 18.7 % (11.6-16.5); WHITE BLOOD COUNT 13.4 X10^3/uL (3.6-10.0)
[2021-03-03] MEDS ORDERED: PERIACTIN TAB 4 MG NG SCH (06:00)
[2021-03-03 06:07] LABS: ALBUMIN 0.9 g/dL (3.4-5.0); CARBON DIOXIDE 20.9 mmol/L (21-32); COR CA(FOR HYPOALB) 8.2 mg/dL (8.5-10.1); CREATININE 5.09 mg/dL (0.70-1.30); TOTAL PROTEIN 4.7 g/dL (6.4-8.2)
[2021-03-03 06:22] LABS: CALCIUM 5.7 mg/dL (8.5-10.1)
[2021-03-03] MEDS: CYTOTEC NG SCH (06:45)
[2021-03-03] MEDS: ZOSYN VIAL 3.375 GRAMS 3.375 G in NS 100 ML IV + SPIKE MINIBAG* 100 ML IV SCH (06:46)
[2021-03-03] MEDS: HumuLIN R SUBCUT PRN (06:47)
[2021-03-03 07:04] LABS: BAND NEUTROPHILS % 10 % (0-10); METAMYELOCYTES % 1; PLATELET MORPHOLOGY COMMENT NORMAL (NORMAL)
[2021-03-03] MEDS: ELIQUIS PO SCH (08:41)
[2021-03-03] MEDS: COREG TAB 3.125 MG NG SCH (08:41)
[2021-03-03] MEDS: LIPITOR TAB 80 MG NG SCH (08:44)
[2021-03-03] MEDS: PEPCID TAB 20 MG NG SCH (08:44)
[2021-03-03] MEDS: LACRI-LUBE S.O.P. AFFEYE SCH (08:44)
[2021-03-03] MEDS: THIAMINE HCL INJ IVP SCH (08:45)
[2021-03-03] MEDS: VITAMIN A NG SCH (08:45)
[2021-03-03] MEDS: PROTONIX INJ 40 MG VIAL IVP SCH (08:45)
[2021-03-03] MEDS: VITAMIN D3 125 mcg (5,000 UNITS) NG SCH (08:46)
[2021-03-03] MEDS: ZINC SULFATE NG SCH (08:46)
[2021-03-03] MEDS: AVELOX IV 400 MG/250 ML BAG 400 MG/250 ML PIGGYBACK IV SCH (08:50)
[2021-03-03] MEDS: BROVANA IN SCH (09:05)
[2021-03-03] MEDS: PULMICORT NEB TX 0.5 MG NEB SCH (09:05)
[2021-03-03] MEDS ORDERED: D5W 250 ML IV 250 ML IV ONE (09:10)
--- NOTE | 2021-03-03 10:30 | RAD ---
HISTORYVENTILATOR DEPENDENCESTUDYCHEST x-ray, 1 VIEWCOMPARISONX-ray 03/02/2021FINDINGSEndotracheal tube terminates 5.6 cm above the fazal. Enteric tube tip is not definitely in the stomach. Recommend follow-up abdomen x-ray to confirm location.Heart is normal in size. Prominent bilateral lung infiltrates are likely similar to prior study given differences in technique.IMPRESSIONPersistent bilateral pneumonia or post infectious changes are suspected.Enteric tube tip cannot be confirmed in the stomach. Recommend follow-up abdomen x-ray.Electronically signed by: Charanjit Maki (Mar 03, 2021 10:29:17)
[2021-03-03] MEDS: DIPRIVAN PREMIX 1 GRAM IV 1,000 MG/100 ML VIAL IV PRN (11:41)
[2021-03-03 15:38] VITALS: BP 100/55
== END 2021-03-03 14:05 | disposition expired | DRG 207 ==
LOC: ER 13:52 → OBS 20:26 → ICU 02-24 02:59 → OBS 02-24 02:59
PROVIDERS: ADMIT Obstetrics & Gynecology Obstetrics; ATTEND Obstetrics & Gynecology Obstetrics
DX: Y92.9 Unspecified place or not applicable; Z66 Do not resuscitate; I87.2 Venous insufficiency (chronic) (peripheral); I10 Essential (primary) hypertension; S30.0XXA Contusion of lower back and pelvis, initial encounter; E11.9 Type 2 diabetes mellitus without complications; W19.XXXA Unspecified fall, initial encounter; J96.00 Acute respiratory failure, unspecified whether with hypoxia or hypercapnia; R26.81 Unsteadiness on feet; J12.81 Pneumonia due to SARS-associated coronavirus; S30.1XXA Contusion of abdominal wall, initial encounter; U07.1 COVID-19; M19.90 Unspecified osteoarthritis, unspecified site; E87.0 Hyperosmolality and hypernatremia; R41.82 Altered mental status, unspecified